=== PATIENT | female | born 1940 | race Caucasian/White ===

== ENCOUNTER 2024-12-14 09:55 | Outpatient (REF) | payer MEDICARE, SELFPAY ==
--- NOTE | ~2024-12-14 | MM_ITS ---
EXAMINATION: DXA BONE DENSITY AXIAL HISTORY: Estrogen deficiency TECHNIQUE: [employer] Dual energy absorptiometry (DEXA) of the distal radius, total left hip, and femoral neck was performed. The lumbar spine was not evaluated due to a history of prior surgery with nikhil placement. COMPARISON: There are no prior studies for comparison. FINDINGS: The bone mineral density of the total left hip is 0.858 with a T-score of -1.2, and a Z-score of 1.2. This is indicative of osteopenia. The bone mineral density of the left femoral neck is 0.721 with a T-score of -2.3, and a Z-score of 0.2. This is indicative of osteopenia. The bone mineral density of the left distal radius is 0.565 with a T-score of -3.5, and a Z-score of -0.5. This is indicative of osteoporosis. FRACTURE RISK: The FRAX index suggests a risk of major osteoporotic fracture of 24.8%, and of hip fracture 7.9%. MM/XR DEXA axial skeleton IMPRESSION: Based on bone mineral density, and according to World Health Organization (WHO) criteria, the diagnosis is consistent with osteoporosis. All bone density values are in grams per centimeter squared (g/cm2). Statistically, 68% of repeat scans fall within 1 SD (+/- 0.010 g/cm2 for AP spine L1-L4) and 1 SD (+/- 0.012 g/cm2 for femur total) FRAX is a trademark of the [employer] [place] [employer], a World Health Organization (WHO) Collaborating Center. Electronically signed by: Jeison Goldman MD 12/14/2024 12:13 PM EDT
--- OUTSIDE RECORDS SUMMARY | 2024-12-14 11:27 | XMS_ITS | Data Portability ---
Author Organization [facility] Main Office Address [address] [place] [address] Care Team Providers Care Evening Sitter Name Role Phone [facility] Ophthalmol ogist GAMALIEL COLE Primary Care Provider Assessment No assessment recorded. Plan of Treatment Reminders Order Date Submit Date Provider Last Modified By Organization Details Last Modified Time Details Appointments ESTAB DEANGELO VENTURA NT VISIT 2024 01:00P Janet Ricci MD Not available Not available Not available Lab derma topat holog y, tissu e - Shave bx--R ight Nasal Sidew all 0.5 cm from midli ne--A K, ISK, SC, BC, other 2022 023 [facility], [address] [place] [address], [id number], 08/12/2023 18:06:19 derma topat holog y, tissu e - EXC-- BC ,SC-- Upper Edge of Left Brow near later al end-- media l sutur e--pt has perma nent makeu p eyebr ow 2022 023 [facility], [address] [place] [address], [id number], 05/06/2023 10:23:22 Referral None recor ded. Procedures None recor ded. Surgeries None recor ded. Imaging None recor ded. Medication Orders doxyc yclin e hycla te 100 mg capsu le 04/18/ 2024 04/18/2 024 [email or web address] [id number], [address] [place] [address], [id number], 05/27/2024 11:00:52 diclo fenac 3 % topic al gel 2022 023 [email or web address] [id number], [address] [place] [address], [id number], 09/18/2023 09:42:20 mupir ocin 2 % topic al ointm ent 2022 023 MIKAELA [id number], [address] [place] [address], [id number], 08/15/2023 10:11:32 triam cinol one aceto nide 0.1 % topic al cream 2022 023 [email or web address] [id number], [address] [place] [address], [id number], 09/18/2023 09:42:48 Patient TargetsNo targets recorded. Patient Instructions Encounter Date Encounter Id Patient Instructions Last Modified By Organization Details Last Modified Time 04/30/2023 [id number] wound care instructions [email or web address] Not available 04/30/2023 20:11:45 Written and verb al wound care instructions given. Notify if post-op problems. Return visit 05/02/2023 for a postoperative check. Suture removal should be done May 07 or . Have a friend in [place] or your PCP in [place] remove the sutures for you. 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 {{He She*}} agrees to surgical excision today. She will be leaving town early next week and for that reason a recheck visit here is set for May 02. She will arrange suture removal to be done in [place] on the or . Discussed use of Celestone soluspan injection to minimize post-op edema and pain. {{He She*}} agrees to have this done. [email or web address] Not available 05/05/2023 15:13:01 06/23/2023 [id number] wound care instructions [email or web address] Not available 07/29/2023 09:10:17 Written and verb al wound care instructions given. Call if you have not heard by 10 days on the tissue report. Notify if post-op problems. Continue daily use of SPF-30 or higher sunscreen on all sun exposed skin applying that before going outside. Continue to wear sun protective clothing and a broad brimmed hat when outdoors in daytime. Continue other skin care as previously advised. Follow-up in 1 month. [email or web address] Not available 06/23/2023 17:36:47 Discussed possib le diagnoses for {{ nose#}} lesion and need for tissue biopsy to guide diagnosis and treatment. {{He She* They}} agrees to biopsy the {{site* sites rash }}. See procedure note. Facial seborrheic dermatitis is under good control. She will continue the present care. Reassured about lack of recurrence at previous skin cancer {{site sites*}}. Encouraged monthly self skin checks, use of SPF-30 or greater strength sunscreen daily on all sun-exposed skin, protective clothing, and minimizing mid-day sun exposure. {{He She*}} is aware of ABCDE guidelines of possible skin cancer. Reviewed risk of new and recurrent skin cancer and actinic keratoses. Right hip lesion that she noted and was concerned about is a seborrheic keratosis that does not show any unusual features. Reassured about benign nevi, angiomas, and seborrheic keratoses. Discussed expected features of these. No treatment is needed unless a lesion is painful, bleeding, itchy, tender, or changing out of character to other skin findings. Total time caring for this patient was 20 minutes. This includes time reviewing the chart before the visit, time during the visit, and time after the visit doing documentation, etc. This time excluded the procedure time. Right nasal sidewall shave biopsy showed hypertrophic actinic keratosis on the tissue report. The base of the site was cauterized when the biopsy was obtained. Ms. Moya was notified about the report by phone 07/01/2023. She reported the site was healing nicely. She has a follow-up visit fairly soon. We will recheck the biopsy site then. [email or web address] Not available 07/29/2023 09:27:04 08/15/2023 [id number] Continue daily u se of SPF-30 or higher sunscreen on all sun exposed skin applying that before going outside. Continue to wear sun protective clothing and a broad brimmed hat when outdoors in daytime. Continue other skin care as previously advised. [email or web address] Not available 08/15/2023 10:03:15 Discussed treatment options for inflamed symptomatic seborrheic {{keratosis kerato ses*}} including liquid nitrogen. Liquid N2 done to {{1* 2 3 4 5 6 7 8 9 10 11 12 13 14 15 more than 15}} {{ISK* ISKs}}. See diagram. Left ear erin bowl appears to have been scratched and shows early impetigo. Rx authorized of mupirocin ointment to apply 2-4 times daily to skin wounds. Her skin appears to be quite well moisturized at this point. There have been episodes of nummular dermatitis particularly on the legs. New Rx is authorized of TAC 0.1% cream to apply sparingly 1-2 times daily to nummular dermatitis rash on the legs and ankles. She is responding quite nicely to diclofenac 3% gel treatment for actinic keratoses. She is to continue that treatment. A new Rx is authorized for diclofenac 3% gel to apply once daily (in evening) to the face. Reassured about lack of recurrence at previous skin cancer {{site sites*}}. Encouraged monthly self skin checks, use of SPF-30 or greater strength sunscreen daily on all sun-exposed skin, protective clothing, and minimizing mid-day sun exposure. {{He She*}} is aware of ABCDE guidelines of possible skin cancer. Reviewed risk of new and recurrent skin cancer and actinic keratoses. Reassured about benign nevi, angiomas, and seborrheic keratoses. Discussed expected features of these. No treatment is needed unless a lesion is painful, bleeding, itchy, tender, or changing out of character to other skin findings. Total time caring for this patient was 45 minutes. This includes time reviewing the chart before the visit, time during the visit, and time after the visit doing documentation, etc. This time excludes any procedure time. [email or web address] Not available 12/25/2023 00:52:51 12/25/2023 [id number] Start doxycyclin e 100 mg twice daily. Cautioned that she should take this with food to minimize GI upset. She also needs to be extremely careful about consistent use of sunscreen as well as minimizing sun exposure while she is taking this medication. Continue daily use of SPF-30 or higher sunscreen on all sun exposed skin applying that before going outside. Continue to wear sun protective clothing and a broad brimmed hat when outdoors in daytime. Continue other skin care as previously advised. Follow-up in 6 months. [email or web address] Not available 05/27/2024 12:10:12 Discussed concer ns about tick bites particularly the risk of the various tick-borne diseases such as Lyme disease. Due to the number of ticks found today, I felt it was best to proceed with definitive treatment. An Rx is authorized of doxycycline 100 mg taken twice daily for 30 days. All of the ticks were removed manually. She is to notify if there is any difficulty with healing on those sites. The various signs and symptoms of the tick-borne diseases were reviewed with her and she is to notify this office if any of those symptoms should develop. Reviewed use of protective clothing and insect repellents to minimize risk of tick bites. Strongly encouraged that she do a self skin check anytime after hiking/walking in areas where ticks tend to live. Discussed treatment options for inflamed symptomatic seborrheic {{keratosis kerato ses*}} including liquid nitrogen. Liquid N2 done to {{1 2 3 4 5 6* 7 8 9 10 11 12 13 14 15 more than 15}} {{ISK ISKs*}}. See diagram. Subacute dermatitis appears to be very well-controlled. She will continue her present medications. 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 She we will continue those medications on an as-needed basis. Actinic keratoses have been nicely controlled with her present use of diclofenac 3% gel. That will be continued in the present manner and frequency. Reassured about lack of recurrence at previous skin cancer {{site sites*}}. Encouraged monthly self skin checks, use of SPF-30 or greater strength sunscreen daily on all sun-exposed skin, protective clothing, and minimizing mid-day sun exposure. {{He She*}} is aware of ABCDE guidelines of possible skin cancer. Reviewed risk of new and recurrent skin cancer and actinic keratoses. Reassured about benign nevi, angiomas, and seborrheic keratoses. Discussed expected features of these. No treatment is needed unless a lesion is painful, bleeding, itchy, tender, or changing out of character to other skin findings. Time caring for this patient was 50 minutes. This includes time reviewing the chart before the visit, time during the visit, and time after the visit doing documentation, etc. This time excludes any procedure time. [email or web address] Not available 05/27/2024 13:55:48 Reason for Referral None Reported. Results Created Date Observation Date Name Description Value Unit Range Abnormal Flag Note LastModifiedBy Organization Detail LastModifiedTime Result Notes Documentation Provider Name and Address Organization Details Recorded Time Dermatopathology, Tissue : Dermatopathology Dermatopathology, Tissue : SC in situ completely excised on the upper edge of left brow Chitra Ricci MD [address] [place], [address], [facility] 06/23/2023 16:54:00 Dermatopathology, Tissue : Dermatopathology Dermatopathology, Tissue : Hypertrophic AK on right nasal sidewall shave biopsy. Radha hoyos [place] [facility] 07/01/2023 15:55:29 Problems Name Problem SNOMED Code Status Onset Date Resolution Date Notes Provider Name and Address Organization Details Recorded Time Actinic keratosis Armando Ricci MD [address] [place], [address] , [facility] 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 7 01:17:38 History of malignant neoplasm of skin excluding melanoma [id number] Armando Ricci MD [address], [place], [address] , [facility] 3 10:05:15 Dermatophy tosis 73177573 Completed 02/09/2019 Chitra Ricci MD [address], [place], [address] , [facility] 9 18:59:18 Subacute dermatitis 88518570 Completed 04/30/2023 Chitra Ricci MD [address], [place], [address] , [facility] 4 09:41:43 Seborrheic dermatitis 21582936 Active Chitra Ricci MD [address], [place], [address] , [facility] 8 13:34:58 Inflamed seborrheic keratosis 027734004 Completed 10/23/2020 Radha Graves [facility], [facility] 2 14:34:59 Hyperpigme ntation of skin 50894358 Active Chitra Ricci MD [address], [place], [address] , [facility] 8 14:38:00 Pruritic disorder 544219846 Completed 04/30/2023 Chitra Ricci MD [address], [place], [address] , [facility] 3 08:59:02 Acne 78103964 Active Chitra Ricci MD [address] [place], [address] , [facility] 3 10:05:02 Inflamed seborrheic keratosis 554587808 Active Radha hoyos [facility] 2 14:34:59 Hayley 108476974 Completed 04/30/2023 Chitra Ricci MD [address], [place], [place], [address] [place] [address] , [facility] 3 08:58:57 Impetigo 88398508 Completed 04/30/2023 Chitra Ricci MD [address], [place], [address] [place] [address] , [facility] 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 3 09:13:51 Abscess of lip 23578495 Completed 202104/24/2023 Chitra Ricci MD [address] [place], [address] [place] [address] , [facility] 3 12:54:36 Neoplasm of uncertain behavior of skin 18569358 Completed 04/30/2023 Sophie hoyos [place] [facility] 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 3 15:08:26 Nummular eczema 19541005 Active Chitra Ricci MD [address], [place], [address] [place] [address] , [facility] 3 09:14:13 Subacute dermatitis 64214798 Active Chitra Ricci MD [address], [place], [address] , [facility] 09:41:43 Problem Notes None recorded. Procedures Surgical History Date Name Laterality Status Provider Name and Address Organization Details Recorded Time 12/25/19 24 Destruction symptomatic benign lesions <14 completed Chitra Ricci MD [address], [place], [address], [facility] 05/27/2024 11:06:28 08/15/20 23 Destruction symptomatic benign lesions <14 completed Chitra Ricci MD [address], [place], [address], [facility] 08/15/2023 10:02:06 06/23/20 23 Biopsy-shave 1st site completed Chitra Ricci MD [address], [place], [address], [facility] 06/23/2023 17:31:40 04/30/20 23 Celestone soluspan 3 mg completed Chitra Ricci MD [address], [place], [address], [facility] 04/30/2023 20:05:07 04/30/20 23 Exc mal face/ear/eyelid/n ose/lips 1.1-2.0cm completed Chitra Ricci MD [address], [place], [address], [facility] 05/05/2023 14:36:46 04/30/20 23 Complex repair eyelid/nose/ear/l ip 2.6-7.5 cm completed Chitra Ricci MD [address], [place], [address], [facility] 05/05/2023 15:15:46 04/30/20 23 Skin Cancer Surgery completed Chitra Ricci MD [address], [place], [address], [facility] 07/28/2023 23:41:08 04/24/20 23 Wart Topical Procedure completed Chitra Ricci MD [address], [place], [address], [facility] 04/29/2023 18:44:34 04/24/20 23 Local destruction premalignant lesion 1 lesion completed Chitra Ricci MD [address], [place], [address], [facility] 04/24/2023 15:37:23 04/24/20 23 Local destruction premalignant lesion 2-14 completed Chitra Ricci MD [address], [place], [address], [facility] 04/30/2023 09:03:16 01/31/20 23 Destruction symptomatic benign lesions <14 completed Sophie Plata [place] [facility] 04/11/2023 10:38:18 01/31/20 23 Local destruction premalignant lesion 1 lesion completed Chitra Ricci MD [address], [place], [address], [facility] 01/30/2023 14:07:19 01/31/20 23 Local destruction premalignant lesion 2-14 completed Chitra Ricci MD [address], [place], [address], [facility] 04/24/2023 12:56:11 09/12/19 23 Biopsy-shave 1st site completed Radha Gilliam [facility] 09/12/2022 15:22:21 09/12/19 23 Destruction symptomatic benign lesions <14 completed Chitra Ricci MD [address], [place], [address], [facility] 09/12/2022 15:07:27 04/01/20 22 I+D 1/not complicated completed Chitra Ricci MD [address], [place], [address], [facility] 08/19/2022 00:09:49 02/07/20 22 Destruction symptomatic benign lesions <14 completed Chitra Ricci MD [address] [place], [address], [facility] 02/07/2022 00:42:25 02/07/20 22 Local destruction premalignant lesion 1 lesion completed Chitra Ricci MD [address], [place], [address], [facility] 02/07/2022 00:42:30 12/18/19 22 Biopsy-shave 1st site completed Chitra Ricci MD [address], [place], [address], [facility] 01/30/2022 11:10:13 10/18/19 22 Acne surgery completed Chitra Ricci MD [address], [place], [address], [facility] 12/17/2021 14:24:32 10/18/19 22 Destruction symptomatic benign lesions <14 completed Chitra Ricci MD [address], [place], [address], [facility] 12/17/2021 14:24:28 10/08/19 22 Joint Replacement completed Radha Gilliam [place] [facility] 12/17/2021 13:14:52 12/20/19 21 Chemical cauterization of granulation tissue completed Chitra Ricci MD [address], [place], [address], [facility] 12/22/2020 17:07:44 12/20/19 21 Removal of Foreign Body completed Chitra Ricci MD [address], [place], [address], [facility] 10/18/2021 09:56:34 01/05/20 20 Kenalog 10 mg completed Chitra Ricci MD [address], [place], [address], [facility] 01/05/2020 09:39:26 01/05/20 20 Celestone soluspan 3 mg completed Chitra Ricci MD [address], [place], [address], [facility] 01/05/2020 10:04:48 02/11/20 19 Celestone soluspan 3 mg completed Chitra Ricci MD [address], [place], [address], [facility] 02/10/2019 15:56:59 02/11/20 19 Destruction symptomatic benign lesions <14 completed Chitra Ricci MD [address], [place], [address], [place] [facility] 02/10/2019 15:55:01 09/18/19 19 Destruction symptomatic benign lesions <14 completed Chitra Ricci MD [address], [place], [address], [facility] 02/09/2019 18:55:14 09/18/19 19 Local destruction premalignant lesion 1 lesion completed Chitra Ricci MD [address], [place], [address], [facility] 09/18/2018 10:54:52 09/18/19 19 Local destruction premalignant lesion 2-14 completed Chitra Ricci MD [address], [place], [address], [facility] 02/09/2019 18:38:40 12/03/19 18 Destruction symptomatic benign lesions 15 or more completed Chitra Ricci MD [address], [place], [address], [facility] 12/02/2017 14:15:09 11/25/19 18 Biopsy, each additional completed Chitra Ricci MD [address], [place], [address], [facility] 12/02/2017 12:55:35 11/25/19 18 Biopsy Punch completed Chitra Ricci MD [address], [place], [address], [facility] 12/02/2017 12:56:42 08/06/20 17 Removal of Foreign Body completed Chitra Ricci MD [address], [place], [address], [facility] 08/18/2017 13:16:57 08/06/20 17 Local destruction premalignant lesion 1 lesion completed Chitra Ricci MD [address], [place], [address], [facility] 08/18/2017 13:10:24 08/06/20 17 Local destruction premalignant lesion 2-14 completed Chitra Ricci MD [address], [place], [address], [facility] 08/18/2017 13:10:20 05/29/20 17 Celestone soluspan 3 mg completed Chitra Ricci MD [address], [place], [address], [facility] 05/29/2017 17:22:17 04/23/20 17 Removal of Foreign Body completed Chitra Ricci MD [address] [place], [address], [facility] 07/15/2017 23:53:59 09/30/19 17 Skin Cancer Surgery completed Chitra Ricci MD [address], [address], [facility] 05/29/2017 16:48:38 09/30/19 13 Other completed Chitra Ricci MD [address], [place], [address], [facility] 08/18/2017 13:35:22 09/08/18 97 Other completed Chitra Ricci MD [address], [place], [address], [facility] 04/28/2017 12:48:54 09/08/18 97 Skin Cancer Surgery completed Chitra Ricci MD [address] [place], [address], [facility] - [facility] 04/28/2017 12:50:11 Imaging Results None recorded. Procedure Notes None recorded. Medical Equipment None Reported. Allergies No known drug allergies Medications Name Sig Start Date Stop Date Status Note LastModified by Organization Details LastModified Time amoxicill in 500 mg capsule Take 4 capsules 1 hour before dental appointm ent active Not Available Not Available No t Available furosemid e 40 mg tablet Take 1 tablet once daily 09/12 completed Not Available Not Available Not Available atorvasta tin 40 mg tablet Take 1 tablet every evening active Not Available Not Available No t Available metformin 500 mg tablet Take 1 tablet once daily with breakfas t 12/24 completed Not Available Not Available Not Available diclofena c 3 % topical gel APPLY TO AFFECTED AREA(S) OF FACE EVERY EVENING active Not Available Not Available No t Available prednison e 10 mg tablet 09/18 completed Not Available Not Available Not Available doxycycli ne hyclate 100 mg capsule Take 1 capsule twice a day with food. active Not Available Not Available No t Available ammonium lactate 12 % lotion Apply 1-2 times daily to dry skin on the arms, trunk, and legs active Not Available Not Available No t Available pravastat in 40 mg tablet Take 1 tablet once daily at bedtime 01/30 completed Not Available Not Available Not Available metoprolo l succinate ER 50 mg tablet,ex tended release 24 hr 1 tab po once daily 12/19 completed Not Available Not Available Not Available valacyclo vir 1 gram tablet Take 1 tablet twice daily 09/12 completed Not Available Not Available Not Available tolterodi ne ER 4 mg capsule,e xtended release 24 hr Take 1 capsule once daily 12/24 completed Not Available Not Available Not Available hydrocodo ne 5 mg-acetam inophen 325 mg tablet 02/10 completed Not Available Not Available Not Available ondansetr on HCl 4 mg tablet TAKE 1 TABLET BY MOUTH EVERY DAY 09/12 completed Not Available Not Available Not Available prednison e 20 mg tablet TAKE 1 TABLET BY MOUTH ONCE DAILY WITH FOOD OR MILK FOR 3 DAYS 02/10 /2022 completed Not Available Not Available Not Available fluoroura cil 5 % topical cream Apply twice daily to face for 2 weeks and then stop. 10/23 completed Not Available Not Available Not Available sertralin e 100 mg tablet Take 1 tablet every day active Not Available Not Available No t Available prednison e 5 mg tablet 07/15 completed Not Available Not Available Not Available amlodipin e 5 mg tablet Take 1 tablet once daily 04/24 completed temporar urbano not being take Not Available Not Available Not Available tretinoin 0.05 % topical cream Apply by topical route for 30 days. 12/24 completed (denied by ins) Not Available Not Available Not Available ciproflox acin 500 mg tablet 09/12 completed Not Available Not Available Not Available omeprazol e 40 mg capsule,d elayed release Take 1 capsule twice daily active Not Available Not Available No t Available tramadol 50 mg tablet Take 1 tablet every 6 hours prn acute pain 09/12 completed Not Available Not Available Not Available triamcino lone acetonide 0.1 % topical cream Apply sparingl y 1-2 times daily to rash on legs and ankles. active Not Available Not Available No t Available amoxicill in 500 mg tablet 08/15 completed Not Available Not Available Not Available tolterodi ne 2 mg tablet Take 1 tablet once daily prn urinary discomfo rt 04/24 completed Not Available Not Available Not Available hydrocort isone 2.5 % lotion Apply thinly once daily to rash on face, neck, arms, and shoulder s. Do not apply to normal skin. 2024 active Not Available Not Available Not Avai lable imiquimod 5 % topical cream packet Apply three non-cons ecutive nights per week to upper lip. 01/04 completed Never picked up; worried about reaction . Not Available Not Available Not Available doxycycli ne monohydra te 100 mg capsule 12/19 completed Not Available Not Available Not Available hydrocodo ne 7.5 mg-acetam inophen 325 mg tablet 12/17 completed Temporar y - shoulder surgery Not Available Not Available Not Available cephalexi n 500 mg capsule TAKE 1 CAPSULE BY MOUTH FOUR TIMES A DAY FOR 7 DAYS 10/18 completed Not Available Not Available Not Available neomycin- polymyxin -dexameth 3.5 mg/mL-10, 000 unit/mL-0 .1% eye drops 10/09 completed Not Available Not Available Not Available ranitidin e 150 mg tablet 07/13 completed Not Available Not Available Not Available nitroglyc aristeo 0.4 mg sublingua l tablet 12/19 completed Not Available Not Available Not Available oxybutyni n chloride ER 5 mg tablet,ex tended release 24 hr Take 1 tablet every day active Not Available Not Available No t Available diltiazem CD 120 mg capsule,e xtended release 24 hr 12/19 completed Not Available Not Available Not Available monteluka st 10 mg tablet Take 1 tablet once daily 04/24 completed For allergie s Not Available Not Available Not Available ammonium lactate 12 % topical cream Apply 1-2 times daily to dry skin on arms, trunk, and legs 12/24 completed Not Available Not Available Not Available mupirocin 2 % topical ointment Apply 2-4 times daily to skin wounds active Not Available Not Available No t Available zolpidem 5 mg tablet Take 1 capsule at bedtime as needed for insomnia active Not Available Not Available No t Available metoprolo l succinate ER 25 mg tablet,ex tended release 24 hr 10/30 completed Not Available Not Available Not Available Transderm -Scop 1 mg over 3 days transderm al patch 02/10 completed prn Not Available Not Available Not Available ibuprofen 600 mg tablet 10/30 completed prn Not Available Not Available Not Available levofloxa los 500 mg tablet 07/15 completed Not Available Not Available Not Available ketoconaz ole 2 % topical cream APPLY TO AFFECTED AREAS IN THE EARS TWICE A DAY UNTIL RASH IS GONE. 10/30 completed Not Available Not Available Not Available oxybutyni n chloride 5 mg tablet Take 1/2 tablet once daily as needed active Not Available Not Available No t Available indometha los ER 75 mg capsule,e xtended release active prn Not Available Not Available Not Available sertralin e 50 mg tablet TAKE 1 TABLET BY MOUTH EVERY DAY 09/12 completed Not Available Not Available Not Available naproxen 500 mg tablet 11/10 completed Not Available Not Available Not Available metoclopr amide 10 mg tablet Take 1 tablet every 8 hours as needed for nausea active Not Available Not Available No t Available amoxicill in 500 mg-potass ium clavulana te 125 mg tablet 07/25 completed Not Available Not Available Not Available Restasis 0.05 % eye drops in a dropperet te 12/19 completed Not Available Not Available Not Available rosuvasta tin 10 mg tablet Take 1 tablet once daily 04/24 completed Not Available Not Available Not Available nitrofura ntoin monohydra te/macroc rystals 100 mg capsule 09/12 completed Not Available Not Available Not Available Vesicare 10 mg tablet 04/07 completed Not Available Not Available Not Available pregabali n 200 mg capsule TAKE 1 CAPSULE BY MOUTH TWICE A DAY active Not Available Not Available No t Available cholecalc iferol (vitamin D3) 1,250 mcg (50,000 unit) capsule TAKE 1 CAPSULE BY MOUTH EVERY 7 DAYS 10/30 completed Not Available Not Available Not Available Voltaren 1 % topical gel active prn (Has 2.5% strength that is OTC in [place].) Not Available Not Available Not Available cholecalc iferol (vitamin D3) 50 mcg (2,000 unit) tablet Take 2 tablets once daily 10/18 completed Not Available Not Available Not Available Prolia 60 mg/mL subcutane ous syringe active Once a year Not Available Not Available Not Available EpiPen 2-Bashir 0.3 mg/0.3 mL injection , auto-inje ctor Use as instruct ed on packagin g. 09/12 completed Not Available Not Available Not Available potassium chloride ER 20 mEq tablet,ex tended release Take 1 tablet once daily 10/18 completed Not Available Not Available Not Available Shingrix (PF) 50 mcg/0.5 mL intramusc ular suspensio n, kit 07/10 completed Not Available Not Available Not Available Lotemax SM 0.38 % eye gel drops INSTILL 1 DROP IN LEFT EYE 4 TIMES DAILY FOR 1 WEEK, THEN FOLLOW TAPER SCHEDULE 04/07 completed Not Available Not Available Not Available Vitals Date Recorded Body height Body mass index (BMI) Body weight Systolic blood pressure Diastolic blood pressure Provider Name and Address Organization Details Last Updated DateTime 04/30/2023 152.4 cm 27.2 kg/m2 51274.14 g 121 mm[Hg] 74 mm[Hg] Sophie [facility] 3 10:33:00 Date Recorded Body height Body mass index (BMI) Body weight Provider Name and Address Organization Details Last Updated DateTime 05/02/2023 152.4 cm 27.2 kg/m2 59715.14 g Radha Ricci M[facility] 05/02/2023 10:07:59 Date Recorded Body height Body mass index (BMI) Body weight Systolic blood pressure Diastolic blood pressure Provider Name and Address Organization Details Last Updated DateTime 06/23/2023 152.4 cm 27.3 kg/m2 81841.93 g 118 mm[Hg] 69 mm[Hg] Radha [facility] 3 16:41:15 Date Recorded Body height Body mass index (BMI) Body weight Systolic blood pressure Diastolic blood pressure Provider Name and Address Organization Details Last Updated DateTime 08/15/2023 152.4 cm 26.8 kg/m2 50636.15 g 124 mm[Hg] 89 mm[Hg] Sophie [facility] 3 09:17:56 Date Recorded Body height Body mass index (BMI) Body weight Systolic blood pressure Diastolic blood pressure Provider Name and Address Organization Details Last Updated DateTime 12/25/2023 152.4 cm 27.3 kg/m2 01310.93 g 159 mm[Hg] 91 mm[Hg] Sophie [facility] 4 14:25:16 Date Recorded Body height Body mass index (BMI) Body weight Systolic blood pressure Diastolic blood pressure Provider Name and Address Organization Details Last Updated DateTime 07/08/2024 152.4 cm 25 kg/m2 12899.82 g 126 mm[Hg] 73 mm[Hg] Sophie Ricci [facility] 4 13:39:46 Social History Question Answer Notes LastModified by Organizat ion Details LastModified Time Tobacco Smoking Status Never Smoker Not Available [employer] 07/11/2020 03:34:40 What Is Your Level Of Alcohol Consumption? Moderate 2 Drinks A Day [id number] Information not available 07/11/2020 Are You Blind Or Do You Have Difficulty Seeing? No Information not available 08/18/2022 Are You Currently Employed? No Retired Information not available 12/17/2021 Are You Deaf Or Do You Have Serious Difficulty Hearing? No [id number] Information not available 07/11/2020 FAMILY HX MELANOMA No Information not available 04/23/2017 FAMILY HISTORY NON-MELANOMA SKIN CANCER No Information not available 04/23/2017 What Was The Date Of Your Most Recent Tobacco Screening? 12/25/2023 She Continues To Not Smoke. Information not available 12/25/2023 How Many Children Do You Have? 1 Information not available 08/28/2022 What Is Your Relationship Status? Single Information not available 08/28/2022 Are You Passively Exposed To Smoke? No Information not available 08/28/2022 What Types Of Sporting Activities Do You Participate In? Making Jewelry, Sewing, Gardening Information not available 08/28/2022 Do You Use Any Illicit Or Recreational Drugs? No Information not available 08/28/2022 Do You Use Sunscreen Routinely? Yes [place] To [place]. In [place] Since 1946. Spends [place] She [place]ises [place]. [id number] Information not available 07/11/2020 Has Tobacco Cessation Counseling Been Provided? No Not Indicated Information not available 08/18/2022 Do You Or Have You Ever Used Any Other Forms Of Tobacco Or Nicotine? No Information not available 12/17/2021 Sex: Unknown Functional Status None recorded. Mental Status None recorded. Family History Relationship Description Onset Age of this Age Resolved Age Notes LastModified by Organization Details LastModified Time Father Fall 80 Fell and hit his head Not available 04/23/2017 11:02:53 Father Malignant tumor of larynx [email or web address] Not available 2016 12:51:14 Mother Malignant lymphoma 83 Not available 04/23 11:01:50 Mother Allergic rhinitis caused by pollen [email or web address] Not available 2016 12:51:50 Son Victim of trauma with multiple injuries [age] murder victim [email or web address] Not available 12/19/2020 09:03:19 Daughter Well female adult Bob; Age 58 as of Not available 07/08/2024 13:40:15 Notes:Ancestry is [place] an d Kh[place]. She was an only child. She had two children. Son 05/15/17 at age 52. No family history of skin cancer. Medical History Condition Response Heart Problems N Family Hx of Melanoma N Other Y Hepatitis, other than type A N Bleeding disorder N Rheumatologic Disease N Allergies, respiratory and food Y COPD N Lung Disease N Allergies, medications N Cerebral Vascular Accident or TIAs N Tobacco, chewing N Tobacco, cigars N Non-melanoma skin cancer Y Diabetes N Hyperlipidemia N Cancer N Asthma N Thyroid disease N Smoking, tobacco et. al. N Reflux/GERD N Melanoma skin cancer N Liver Disease N Joint Replacement Y Blood thinner/Anti-coagulated N Hypertension N Kidney Disease N Gynecological HistoryNo gynecological history recorded. Obstetrics History GPAL:G 0 P 0 0 0 0 Immunizations Vaccine Type Date Status Note Provider Nam e and Address Organization Details Recorded Time COVID-19, mRNA, LNP-S, PF, 100 mcg/0.5mL dose or 50 mcg/0.25mL dose 10/23/2020 completed Chitra Ricci MD [address] [place], [address], [facility]ra [facility] 10/18/2021 14:16:13 COVID-19, mRNA, LNP-S, PF, 100 mcg/0.5mL dose or 50 mcg/0.25mL dose 11/20/2020 completed Chitra Ricci MD [address] [place], [address], [facility] Chitra [facility] 10/18/2021 14:16:30 COVID-19, mRNA, LNP-S, PF, 100 mcg/0.5mL dose or 50 mcg/0.25mL dose 05/13/2021 completed Chitra Ricci MD [address] [place], [address], [facility] Chitra [facility] 10/18/2021 14:16:42 Influenza, high-dose, trivalent, PF 06/08/2021 completed Chitra Ricci MD [address] [place], [address], [facility] Chitra [facility] 10/18/2021 14:17:08 pneumococcal, unspecified formulation 09/08/2014 completed Chitra Ricci MD [address] [place], [address], [facility] Chitra [facility] 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 Superficia l foreign body of hand without major open wound AND without infection 10796760 S60.551A S60.552A [id number] Chitra Ricci MD Main Office [address] [place] [address] 05/29/2017 16:05:10 05/29/2017 18:44:42 Actinic keratosis L57.0 Asteatotic eczema 20100314 008 L85.3 History of malignant neoplasm of skin excluding melanoma 489210802 Z85.828 Allergic c ontact dermatitis 175884297 L23.9 [facility] 01106231 L57.3 [id number] Chitra Ricci MD Main Office [address] [place] [address] 08/06/2017 08:59:59 08/06/2017 10:31:30 Actinic keratosis 596497950 L57.0 Asteatotic eczema 291260 008 L85.3 History of malignant neoplasm of skin excluding melanoma 462050315 Z85.828 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 Foreign body in skin 934 34350 S60.352A Multiple b enign melanocytic nevi 333223423 D22.5 [id number] Chitra Ricci MD Main Office [address] [place] [address] 08/18/2017 13:00:18 08/18/2017 14:24:39 Actinic keratosis 228862090 L57.0 History of malignant neoplasm of skin excluding melanoma 870581030 Z85.828 Allergic c ontact dermatitis 670642884 L23.89 Neoplasm o f uncertain behavior of skin 93074107 D48.5 Poikiloder ma of [place] 64773672 L57.3 [id number] Chitra Ricci MD Main Office [address] [place] [address] 10/13/2017 09:39:44 10/13/2017 11:40:35 Asteatotic eczema 275742729 L85.3 Actinic keratosis 007 L57.0 History of malignant neoplasm of skin excluding melanoma 176550756 Z85.828 Allergic c ontact dermatitis 804847667 L23.89 Poikiloder ma of [place] 68285892 L57.3 [id number] Chitra Ricci MD Main Office [address] [place] [address] 11/24/2017 09:01:39 11/24/2017 11:01:49 History of malignant neoplasm of skin excluding melanoma 009741721 Z85.828 Allergic c ontact dermatitis 485043555 L23.89 Asteatotic eczema 945290 008 L85.3 Actinic keratosis 475928 007 L57.0 Subacute dermatitis 5310 7009 L20.89 Dermatophytosis 65046241 B35.8 [id number] Chitra Ricci MD Main Office [address] [place] [address] 12/02/2017 12:56:19 12/02/2017 14:50:12 History of malignant neoplasm of skin excluding melanoma 734147387 Z85.828 Allergic c ontact dermatitis 328822480 L23.89 Seborrheic dermatitis 50 743768 L21.8 Inflamed s eborrheic keratosis 735253321 L82.0 Hyperpigme ntation of skin 29926996 L81.4 [id number] Chitra Ricci MD Main Office [address] [place] [address] 09/18/2018 10:24:26 09/18/2018 11:25:41 Actinic keratosis 105389677 L57.0 Seborrheic dermatitis 50 554451 L21.8 Asteatotic eczema 869913 008 L85.3 History of malignant neoplasm of skin excluding melanoma 252175429 Z85.828 Inflamed s eborrheic keratosis 386801872 L82.0 [id number] Chitra Ricci MD Main Office [address] [place] [address] 02/10/2019 15:05:43 02/10/2019 16:13:30 Actinic keratosis 671865993 L57.0 Asteatotic eczema 573027 008 L85.3 Seborrheic dermatitis 50 724174 L21.8 History of malignant neoplasm of skin excluding melanoma 442441459 Z85.828 Inflamed s eborrheic keratosis 576257505 L82.0 Allergic c ontact dermatitis 625900984 L23.89 [id number] Chitra Ricci MD Main Office [address] [place] [address] 07/13/2019 09:06:08 07/13/2019 09:59:55 Asteatotic eczema 583802829 L85.3 Hyperpigme ntation of skin 58952205 L81.4 History of malignant neoplasm of skin excluding melanoma 582496349 Z85.828 Subacute dermatitis 5310 7009 L20.89 Inflamed s eborrheic keratosis 619973121 L82.0 Seborrheic dermatitis 50 580830 L21.8 Actinic keratosis 044132 007 L57.0 [id number] Chitra Ricci MD Main Office [address] [place] [address] 11/18/2019 13:20:48 11/18/2019 14:57:52 History of malignant neoplasm of skin excluding melanoma 009488733 Z85.828 Subacute dermatitis 5310 7009 L20.89 Actinic keratosis 167944 007 L57.0 Asteatotic eczema 168162 008 L85.3 Seborrheic dermatitis 50 446782 L21.8 [id number] Chitra Ricci MD Main Office [address] [place] [address] 01/05/2020 08:35:47 01/05/2020 10:06:16 Subacute dermatitis 73611043 L20.89 Actinic keratosis 500506 007 L57.0 History of malignant neoplasm of skin excluding melanoma 659418902 Z85.828 Asteatotic eczema 147579 008 L85.3 Pruritic disorder 183086 002 L29.8 Atopic barbara matitis of eyelid 534399077 L20.89 [id number] Chitra Ricci MD Main Office [address] [place] [address] 10/30/2020 15:42:54 10/30/2020 16:56:28 Asteatotic eczema 907922394 L85.3 Actinic keratosis 322158 007 L57.0 History of malignant neoplasm of skin excluding melanoma 655550356 Z85.828 At low risk for fall 439 734700 Z91.81 Subacute dermatitis 5310 7009 L20.89 [id number] Chitra Ricci MD Main Office [address] [place] [address] 12/19/2020 10:06:38 12/19/2020 11:35:03 History of malignant neoplasm of skin excluding melanoma 306622752 Z85.828 Actinic keratosis 645376 007 L57.0 Foreign body 729801011 Z 87.821 Intertrigo 10283456 L30. 4 Open wound of lower leg 531710937 S81.802A Abnormal g ranulation tissue 41757082 L92.8 Asteatotic eczema 796188 008 L85.3 [id number] Chitra Ricci MD Main Office [address] [place] [address] 10/18/2021 13:38:57 10/18/2021 15:34:17 Seborrheic dermatitis 42445322 L21.8 Asteatotic eczema 487514 008 L85.3 Actinic keratosis 007 L57.0 History of malignant neoplasm of skin excluding melanoma 498286352 Z85.828 Subacute dermatitis 5310 7009 L20.89 Acne 16394806 L70.8 Inflamed s eborrheic keratosis 845923113 L82.0 [id number] Chitra Ricci MD Main Office [address] [place] [address] 12/17/2021 13:03:35 12/17/2021 14:09:22 History of malignant neoplasm of skin excluding melanoma 409977463 Z85.828 Actinic keratosis 653314 007 L57.0 Milia 710916812 L72.0 Neoplasm o f uncertain behavior of skin 46896300 D48.5 [id number] Chitra Ricci MD Main Office [address] [place] [address] 02/06/2022 10:13:33 02/06/2022 11:36:53 Seborrheic dermatitis 69305800 L21.8 Asteatotic eczema 182635 008 L85.3 History of malignant neoplasm of skin excluding melanoma 211339929 Z85.828 Actinic keratosis 685636 007 L57.0 Subacute dermatitis 5310 7009 L20.89 Herpes simplex 44924672 B00.89 Impetigo 49256024 L01.09 Inflamed s eborrheic keratosis 184734784 L82.0 [id number] Chitra Ricci MD Main Office [address] [place] [address] 04/01/2022 15:02:44 04/01/2022 16:10:27 Abscess of lip 66503586 K13.0 Seborrheic dermatitis 50 525683 L21.8 Acne 83191507 L70.8 History of malignant neoplasm of skin excluding melanoma 829009196 Z85.828 Herpes simplex 73038918 B00.89 [id number] Chitra Ricci MD Main Office [address] [place] [address] 09/12/2022 14:25:13 09/12/2022 15:13:17 Actinic keratosis 611050749 L57.0 Asteatotic eczema 986377 008 L85.3 Seborrheic dermatitis 50 424683 L21.8 Subacute dermatitis 5310 7009 L20.89 History of malignant neoplasm of skin excluding melanoma 883727580 Z85.828 Verruca vulgaris 0713339 3 B07.8 Neoplasm o f uncertain behavior of skin 54303750 D48.5 [id number] Chitra Ricci MD Main Office [address] [place] [address] 01/30/2023 13:08:47 01/30/2023 14:28:51 Inflamed seborrheic keratosis 708945456 L82.0 Hyperpigme ntation of skin 01805053 L81.4 Seborrheic dermatitis 50 199420 L21.8 Asteatotic eczema 165571 008 L85.3 Actinic keratosis 007 L57.0 History of malignant neoplasm of skin excluding melanoma 381122872 Z85.828 Subacute dermatitis 5310 7009 L20.89 Nummular eczema 95966180 L30.0 [id number] Cihtra Ricci MD Main Office [address] [place] [address] 04/24/2023 14:33:53 04/24/2023 15:51:45 Actinic keratosis 295189340 L57.0 Asteatotic eczema 203001 008 L85.3 History of malignant neoplasm of skin excluding melanoma 680224392 Z85.828 Nummular eczema 35308189 L30.0 Seborrheic dermatitis 50 708503 L21.8 Verruca vulgaris 6773002 3 B07.8 Basal cell carcinoma of upper eyelid 371728405 C44.1191 [id number] Chitra Ricci MD Main Office [address] [place] [address] 04/30/2023 10:25:29 04/30/2023 12:35:24 Basal cell carcinoma of upper eyelid 763955357 C44.1191 Localized edema 22730123 4 R60.0 History of malignant neoplasm of skin excluding melanoma 121549412 Z85.828 [id number] Chitra Ricci MD Main Office [address] [place] [address] 06/23/2023 16:31:54 06/24/2023 08:25:19 History of malignant neoplasm of skin excluding melanoma 807206464 Z85.828 Inflamed s eborrheic keratosis 739416079 L82.0 Seborrheic dermatitis 50 982769 L21.8 Actinic keratosis 307388 007 L57.0 Asteatotic eczema 727979 008 L85.3 Verruca vulgaris 5404953 3 B07.8 Neoplasm o f uncertain behavior of skin 45248939 D48.5 [id number] Chitra Ricci MD Main Office [address] [place] [address] 08/15/2023 09:07:24 08/15/2023 10:10:34 History of malignant neoplasm of skin excluding melanoma 439695077 Z85.828 Inflamed s eborrheic keratosis 194694864 L82.0 Nummular eczema 30059206 L30.0 Actinic keratosis 296641 007 L57.0 Asteatotic eczema 545854 008 L85.3 Seborrheic dermatitis 50 137539 L21.8 Subacute dermatitis 5310 7009 L20.89 Multiple b enign melanocytic nevi 882012083 D22.5 Impetigo 05240506 L01.09 [id number] Chitra Ricci MD Main Office [address] [place] [address] 12/25/2023 13:58:09 12/25/2023 15:17:48 Actinic keratosis 160434122 L57.0 Inflamed s eborrheic keratosis 729160981 L82.0 Nummular eczema 39699343 L30.0 Asteatotic eczema 433418 008 L85.3 History of malignant neoplasm of skin excluding melanoma 709556675 Z85.828 Tick bite 69027594 W57.X XXA Foot callus 247691606 L8 4 Health Concerns Section Related Observation LastModified by Organization Detai ls LastModified Time None Recorded Concern Status LastModified by Organization Details LastModified Time None Recorded Advance Directives Directive None Recorded Payers Encounter Date Sequence Insurance Name Policy Number Policy Jordan Covered Member ID Jordan Member ID Guarantor Name 04/30/2023 1 [employer] (MEDICARE REPLACEMENT PPO) [id number] Johanna Moya [id number] Joea Erman 06/23/2023 1 [employer] (MEDICARE REPLACEMENT PPO) [id number] Johanna Erman [id number] Aila Erman 08/15/2023 1 [employer] (MEDICARE REPLACEMENT PPO) [id number] Johanna Erman [id number] Aila Erman 12/25/2023 1 [employer] (MEDICARE REPLACEMENT PPO) [id number] A Johanna Erman [id number] Joea Ermlinda Notes Date Note Type Note Provider Name and Address Organization Details Recorded Time 04/30/2023 text/html Skin Cancer/Skin LesionReported byPatient and Dr Ricci.Location:Lateral end of left brow. Onset/Timing:unknown Duration:Lesion noted since 01/2023. Identified:patient identified Quality:On 04/24/2023 exam site showed an erythematous papule most consistent with a basal cell carcinoma. An actinic keratosis was treated in this area on 01/30/2023. Chitra Ricci MD [address] [place] [address], [address], [facility] - [facility]itra [facility] 05/05/2023 15:16:22 06/23/2023 text/html GrowthReported bypatient.Location:Rou gh lesion present over 6 months on right nasal sidewall. Brown lesion on right hip. Quality:Denies pain or bleeding. Onset/Timing:gradual onset Aggravating Factors:nothing makes it worse Associated Symptoms:none Treatment History:Lesion on nose has been treated with N2 and topical 5-FU in past.Growth F/UReported byPatient and Dr Ricci.Treatment History:Four actinic keratoses on the right forehead and right brow treated 04/24/2023 with liquid nitrogen with good response. 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 Response to Treatment:well toleratedWart F/UReported bypatient.Location:War ts present on 04/24/2023 exam on right hand have resolved. Response to Treatment:Warts pared with #15 blade and treated with Cantharone topical solution.EczemaReporte d bypatient.Location:John orrheic dermatitis of head and neck. 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 Severity:improving Alleviating Factors:Hydrocortisone 2.5% lotion applied as needed to rash areas on head, neck, and below breasts. Ammonium lactate cream applied daily to arms, trunk, and legs. TAC 0.1% cream not currently in use.History of Skin CancerReported bypatient.Notes:Denies problems at skin cancer treatment sites. Chitra Ricci MD [address], [place], [address], [facility] - [facility]itra [facility] 07/29/2023 09:50:21 08/15/2023 text/html GrowthReported bypatient.Location:Itc hy lesion present for years on the high left upper back near the shoulder blade Quality:not painful; not bleeding Onset/Timing:gradual onset Context:not scratching; not picking Aggravating Factors:Rubs against the bra strap Associated Symptoms:none Treatment History:no history of treatmentGrowth F/UReported byPatient and Dr Ricci.Treatment History:Diclofenac 3% gel on hand. Not currently in use. Shave biopsy done 06/23/2023 on right nasal sidewall. Tissue report showed a hypertrophic actinic keratosis. Actinic keratoses on the right forehead and right brow treated 04/24/2023 with liquid nitrogen with good response. Response to Treatment:well toleratedHistory of Skin CancerReported bypatient.Notes:Denies problems at skin cancer treatment sites.EczemaReported bypatient.Location:John orrheic dermatitis of head and neck. 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 Severity:improving Alleviating Factors:Hydrocortisone 2.5% lotion applied as needed to head, neck, and under breasts. Ammonium lactate cream applied daily to arms, trunk, and legs. TAC cream applied as needed to legs and ankles. Chitra Ricci MD [address], [place], [id number], [facility] - Chitra Ricci M.D[facility] P[facility] 12/25/2023 00:53:04 12/25/2023 text/html Growth F/UReport ed byPatient and Dr Ricci.Treatment History:Diclofenac 3% gel on hand. Uses about 2-3 times a week to the face. Actinic keratoses on the right forehead and right brow treated 04/24/2023 with liquid nitrogen with good response. Response to Treatment:well toleratedHistory of Skin CancerReported bypatient.Notes:Denies problems at skin cancer treatment sites.EczemaReported bypatient.Location:John orrheic dermatitis of head and neck. 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 Severity:improving Alleviating Factors:Hydrocortisone 2.5% lotion applied as needed to head, neck, and under breasts. Ammonium lactate cream applied daily to arms, trunk, and legs. TAC cream applied as needed to legs and ankles.OtherReported bypatient.Notes:Was out walking in a wooded area on 12/23/2023 and encountered chiggers and ticks. She definitely has multiple sites of tick and/or chigger bites Chitra Ricci MD [address], [place], [id number], [facility] Falguni Ricci M.D[facility] P.A[facility] 05/27/2024 13:56:22 OBGyn Episode No OBEpisode recorded.
--- OUTSIDE RECORDS SUMMARY | 2024-12-14 11:27 | XMS_ITS | Data Portability ---
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 Plan of Treatment Reminders Order Date Submit Date Provider Last Modified By Organization Details Last Modified Time Details Appointments None recorded. Lab rapid influenza virus A + B and SARS CoV + SARS CoV 2 Ag panel, IA, upper respirator y specimen 2020 021 6 In-Office Order, Internal Use Only DO Not Attach Compendium DO Not Attach Compendium, Do Not Delete/merge, [id number] 16:22:09 vitamin B12, serum 2019 [facility] [address] [place], [address], 0 16:51:43 CBC 2019 020 [facility]), [address] [place], [address], 0 16:49:25 TSH + free T4, serum 2019 020 [facility]), [facility] [place], [address], 0 16:51:10 heterophil e Ab, qualitativ e latex agglutinat ion, serum 2019 020 [facility]), [address] [place], [address], 0 16:52:22 rapid SARS CoV 2 Ag, QL IA, respirator y specimen 2019 020 [email or web address] In-Office Order, Internal Use Only DO Not Attach Compendium DO Not Attach Compendium, Do Not Delete/merge, [id number] 0 17:25:50 rapid influenza virus A + B and SARS CoV + SARS CoV 2 Ag panel, IA, upper respirator y specimen 2019 020 [email or web address] In-Office Order, Internal Use Only DO Not Attach Compendium DO Not Attach Compendium, Do Not Delete/merge, [id number] 0 17:26:07 rapid SARS CoV 2 Ag, QL IA, respirator y specimen 2019 020 [email or web address] In-Office Order, Internal Use Only DO Not Attach Compendium DO Not Attach Compendium, Do Not Delete/merge, [id number] 0 17:06:23 Referral None recorded. Procedures None recorded. Surgeries None recorded. Imaging None recorded. Medication Orders ondansetro n HCl 4 mg tablet 2019 INTERFACE [id number], [address], [place], [address], 0 15:17:17 Patient TargetsNo targets recorded. Patient Instructions Encounter Date Encounter Id Patient Instructions Last Modified By Organization Details Last Modified Time 06/07/2020 [id number] Please call your local Health Department for information and questions. [email or web address] Not available 06/07/2020 17:01:47 08/22/2020 [id number] nausea and vomiting: care instructions [email or web address] Not available 08/22/2020 15:17:15 08/24/2020 [id number] Please call your local Health Department for information and questions. [email or web address] Not available 08/23/2020 17:27:15 08/25/2020 [id number] allergies: care instructions Not available 08/25/2020 16:34:10 managing your allergies: care instructions [email or web address] Not available 08/25/2020 16:34:10 08/13/2021 [id number] Please call your local Health Department for information and questions. [email or web address] Not available 08/13/2021 13:19:35 Reason for Referral None Reported. Results Created Date Observation Date Name Description Value Unit Range Abnormal Flag Note LastModifiedBy Organization Detail LastModifiedTime 08/24/20 20 08/24/2020 rapid influ yong virus A + B and SARS CoV + SARS CoV 2 Ag panel , IA, upper respi rator y speci men Flu A negati ve Not Available In-Office Order Internal Use Only DO Not Attach Compendium DO Not Attach Compendium, Do Not Delete/merge, [id number] 08/24/2020 17:25:10 08/24/20 20 08/24/2020 rapid influ yong virus A + B and SARS CoV + SARS CoV 2 Ag panel , IA, upper respi rator y speci men Flu B negati ve Not Available In-Office Order Internal Use Only DO Not Attach Compendium DO Not Attach Compendium, Do Not Delete/merge, [id number] 08/24/2020 17:25:10 08/24/20 20 08/24/2020 rapid SARS CoV 2 Ag, QL IA, respi rator y speci men COVID-19 Antigen Test negati ve Not Available In-Office Order Internal Use Only DO Not Attach Compendium DO Not Attach Compendium, Do Not Delete/merge, [id number] 08/24/2020 17:25:07 05/23/20 20 05/23/2020 rapid SARS CoV 2 Ag, QL IA, respi rator y speci men Rapid COVID-19 SWAB negati ve Not Available In-Office Order Internal Use Only DO Not Attach Compendium DO Not Attach Compendium, Do Not Delete/merge, [id number] 05/23/2020 15:39:54 06/07/20 20 06/07/2020 rapid SARS CoV 2 Ag, QL IA, respi rator y speci men Rapid COVID-19 SWAB negati ve Not Available In-Office Order Internal Use Only DO Not Attach Compendium DO Not Attach Compendium, Do Not Delete/merge, [id number] 06/07/2020 17:01:48 08/25/20 20 08/26/2020 CBC WBC 5.6 x10e3 /uL 3.4-10 .8 Not Available [facility] ([facility]) [address] [facility], [place], [address], 08/26/2020 05:41:04 08/25/20 20 08/26/2020 CBC RBC 4.84 x10e6 /uL 3.77-5 .28 Not Available [facility] ([facility]) [address] [facility] [place], [address], 08/26/2020 05:41:04 08/25/20 20 08/26/2020 CBC hemoglobin 14.5 g/dL 11.1-1 5.9 Not Available [facility] ([facility]) [address] [facility] [place], [address], 08/26/2020 05:41:04 08/25/2008/26/2020 CBC hematocrit 41.6 % 34.0-4 6.6 Not Available [facility] ([facility]) [address] [place], [address], 08/26/2020 05:41:04 08/25/20 20 08/26/2020 CBC MCV 86 fL 79-97 Not Available [facility] ([facility]) [address] [place], [address], 08/26/2020 05:41:04 08/25/20 20 08/26/2020 CBC MCH 30.0 pg 26.6-3 3.0 Not Available [facility] ([facility]) [address] [place], [address], 08/26/2020 05:41:04 08/25/20 20 08/26/2020 CBC MCHC 34.9 g/dL 31.5-3 5.7 Not Available [facility] ([facility]) [address] [place], [address], 08/26/2020 05:41:04 08/25/20 20 08/26/2020 CBC RDW 12.9 % 11.7-1 5.4 Not Available [facility] ([facility]) [address] [place], [address], 08/26/2020 05:41:04 08/25/20 20 08/26/2020 CBC platelets 246 x10e3 /uL 150-45 0 Not Available [facility] ([facility]) [address] [facility] [place], [address], 08/26/2020 05:41:04 08/25/20 20 08/26/2020 CBC NRBC FINANCIAL SERVICES CONSULTANT Not Available [facility] ([facility]) [address] [place], [address], 08/26/2020 05:41:04 08/25/20 20 08/29/2020 TSH + free T4, serum TSH 1.770 uIU/m L 0.450- 4.500 Not Available [facility] ([facility]) [address] [place], [address], 08/30/2020 07:39:11 08/25/20 20 08/29/2020 TSH + free T4, serum T4,free(dire ct) 1.05 NG/dL 0.82-1 .77 Not Available [facility] ([facility]) [address] [facility], [place], [address], 08/30/2020 07:39:11 08/25/20 20 08/29/2020 vitam in B12, serum vitamin B12 >2000 pg/mL 232-12 45 above high normal Not Available [facility] ([facility]) [address] [place], [address], 08/30/2020 07:39:12 08/25/2008/30/2020 heter ophil e Ab, quali tativ e latex agglu tinat ion, serum mononucleosi s test, qual Negati ve negati ve The sensi tivit y of Heter ophil e antib zach testi ng is 80-90 %. Epste in Eng IgM testi ng offer s highe r sensi tivit y. Not Available [facility] ([facility]) [address] [place], [address], 08/30/2020 07:39:12 12/06/20 21 08/13/2021 rapid influ yong virus A + B and SARS CoV + SARS CoV 2 Ag panel , IA, upper respi rator y speci men flu A NEGATI VE positi ve neg ative normal Not Available In-Office Order Internal Use Only DO Not Attach Compendium DO Not Attach Compendium, Do Not Delete/merge, [id number] 08/13/2021 13:19:36 08/13/20 21 08/13/2021 rapid influ yong virus A + B and SARS CoV + SARS CoV 2 Ag panel , IA, upper respi rator y speci men flu B NEGATI VE positi ve neg ative normal Not Available In-Office Order Internal Use Only DO Not Attach Compendium DO Not Attach Compendium, Do Not Delete/merge, [id number] 08/13/2021 13:19:36 08/13/20 21 08/13/2021 rapid influ yong virus A + B and SARS CoV + SARS CoV 2 Ag panel , IA, upper respi rator y speci men sars NEGATI VE positi ve neg ative normal Not Available In-Office Order Internal Use Only DO Not Attach Compendium DO Not Attach Compendium, Do Not Delete/merge, [id number] 08/13/2021 13:19:36 Result Notes None recorded. Problems Name Problem SNOMED Code Status Onset Date Resolution Date Notes Provider Name and Address Organization Details Recorded Time Cat scratch Active GENNARO LANCASTER [address] [place], [address], [facility] 6 12:27:25 Laceration of hand 711817828 Active Mike Jara MD [address] [place], [address], [facility] 6 18:08:17 Problem Notes None recorded. Procedures Surgical History Date Name Laterality Status Provider Name and Address Organization Details Recorded Time 03/04/20 16 Laceration Repair completed GENNARO LANCASTER [address], [place], [address], [facility] 03/04/2016 12:27:25 09/08/19 11 Cataract Surgery completed [facility] 03/04/2016 11:51:51 09/08/19 10 Back Surgery completed [facility] 03/04/2016 11:51:51 09/08/19 08 Back Surgery completed [facility] 03/04/2016 11:51:51 09/08/19 08 Knee Surgery completed [facility] 03/04/2016 11:51:51 09/08/19 07 Knee Surgery completed [facility] 03/04/2016 11:51:51 09/08/19 05 Knee Surgery completed [facility] 03/04/2016 11:51:51 09/08/18 51 Tonsillectomy completed [facility] 03/04/2016 11:51:51 Other completed [facility] 03/04/2016 11:51:51 Hysterectomy completed [facility] 03/04/2016 11:51:51 Other completed [facility] 03/04/2016 11:51:51 Imaging Results None recorded. Procedure Notes None recorded. Medical Equipment None Reported. Allergies No known drug allergies Medications Name Sig Start Date Stop Date Status Note LastModified by Organization Details LastModified Time Singulair 10 mg tablet Take 1 tablet every day by oral route. active Not Available Not Available No t Available ondansetron HCl 4 mg tablet Take 1 tablet every day by oral route. 2019 active Not Available Not Available Not Avai lable triamcinolo ne acetonide 0.5 % topical ointment APPLY A THIN LAYER TO THE AFFECTED AREA(S) BY TOPICAL ROUTE 2 TIMES PER DAY 2016 active Not Available Not Available Not Avai lable Detrol LA 4 mg capsule,ext ended release Take 1 capsule every day by oral route. active Not Available Not Available No t Available ibuprofen 600 mg tablet Take 1 tablet 3 times a day by oral route for 21 days. 2016 active Not Available Not Available Not Avai lable Bactrim DS 800 mg-160 mg tablet Take 1 tablet every 12 hours by oral route for 5 days. 08/25 completed Not Available Not Available Not Available sertraline active Not Available Not Av ailable Not Available Singulair active Not Available Not Renay ilable Not Available pravastatin 08/25 completed Not Available Not Available Not Available metoprolol succinate 50 mg 1 daily active Not Available Not Available No t Available Ambien active Not Available Not Availa ble Not Available Vesicare active Not Available Not Avai lable Not Available Lyrica active Not Available Not Availa ble Not Available Voltaren 1 % topical gel APPLY 2 GRAMS TO THE AFFECTED AREA(S) BY TOPICAL ROUTE 4 TIMES PER DAY active Not Available Not Available No t Available Solu-Medrol (PF) 125 mg/2 mL solution for injection Administe r 125mg IM x 1 04/17 completed Not Available Not Available Not Available amlodipine besylate (bulk) 5 mg 1 daily active Not Available Not Available No t Available oxybutynin chloride 2.5 mg tablet TAKE 1 TABLET BY MOUTH DAILY NEEDED BLADDER SPASM active Not Available Not Available No t Available Vitals Date Recorded Body weight Body temperature Heart rate Oxygen saturation Oxygen saturation in Arterial blood by Pulse oximetry Systolic blood pressure Diastolic blood pressure Provider Name and Address Organization Details Last Updated DateTime 0 83597.4 9 g 98.6 [degF] 69 /min 96 % 96 % 128 mm[Hg] 80 mm[Hg] Hilaria Villalpando [facility] 0 16:09:29 Social History Question Answer Notes LastModified by Organizat ion Details LastModified Time Tobacco Smoking Status [facility] 03/04/2016 11:48:59 Do You Have An Advance Directive? No Information not available 03/14/2016 What Is Your Level Of Alcohol Consumption? Moderate 1-2 Glasses Of Wine A Night [email or web address] Information not available 03/04/2016 How Much Tobacco Do You Chew? None Information not available 03/14/2016 What Is Your Code Status? Full Code Information not available 03/14/2016 Are You Currently Employed? Yes [email or web address] Information not available 03/04/2016 What Type Of Diet Are You Following? REGULAR [email or web address] Information not available 03/04/2016 Hard Of Hearing Or Deaf In One Or Both Ears? No [email or web address] Information not available 03/04/2016 Legally Blind In One Or Both Eyes? No Information not available 03/04/2016 Live Alone Or With Others? Alone Information not available 03/04/2016 Marital Status [email or web address] not available 03/14/2016 What Was The Date Of Your Most Recent Tobacco Screening? 04/17/2017 Information not available 04/01/2019 Performs Monthly Self-breast Exam? Yes [facility] Information not available 03/14/2016 Are You Sexually Active? No [facility] Information not available 03/14/2016 Are You Passively Exposed To Smoke? No [facility] Information not available 03/14/2016 Sex: Unknown Functional Status Question Answer Note LastModified by Organizat ion Details LastModified Time Urinary incontinence assessment performed? Yes [email or web address] Information not available 03/14/2016 Are you able to care for yourself? Yes [email or web address] Information n ot available 03/04/2016 What is your exercise level? Occasional Information not available 03/04/2016 Mental Status None recorded. Family History Nothing Reported. Medical History Condition Response Coronary Artery Disease N Gout N Other Y Kidney Stones N Blood Diseases N Hyperthyroidism N Blood Transfusion N Hospital Admission Other Than N COPD N Depression N Lung Disease N Hypothyroidism N Developmental or Behavioral Disorders N Defects or Inherited Disease N Breast Problem N Diverticulitis/Diverticulosis N Anesthesia Complications N MRSA history N Anxiety Disorder N Varicose Veins N Muscle, Joint, or Bone Problems N Vision or Eye Problems N Arthritis N Head Injury/Concussion N Tuberculosis (incl. exposure) N Congenital Anomalies N Acid Reflux (GERD) N Cancer N Stroke N Endometriosis N Bladder or Kidney Problems N High Cholesterol Y Liver Disease N Psychiatric/Mental Health Condition N Headaches N Schizophrenia N Fibromyalgia N Concussion N Kidney Disease N Allergies/Hayfever N Ear or Hearing Problems N Hospitalizations Y Thyroid Problems N GI Problems N Acne N ADD/ADHD N Skin Problems N Anemia N Diabetes N Seizures/Epilepsy N AIDS/HIV N Congestive Heart Failure (CHF) N Abuse/Domestic Violence N Asthma N Autism N Hepatitis N Heart Disease N Pulmonary Embolism N Pre-Eclampsia N Hypertension N Osteoporosis N Gynecological HistoryNo gynecological history recorded. Obstetrics History GPAL:G 0 P 0 0 0 0 Immunizations Vaccine Type Date Status Note Provider Nam e and Address Organization Details Recorded Time Td (adult), 2 Lf tetanus toxoid, preservative free, adsorbed 6 completed Not Available [facility] 09/25/2019 02:42:52 Past Encounters Encounter ID Performer Location Encounter Start Date Encounter Closed Date Diagnosis/Indication Diagnosis SNOMED-CT Code Diagnosis ICD10 Code Diagnosis Note [id number] Aminta Stallworth [facility] [address] [place] [address] 03/04/2016 10:56:15 03/04/2016 12:22:39 Administration of diphtheria and tetanus vaccine 83090517 Z23 History of Lyme disease 084933442 Z86.19 Cat scratch 777095699 W5 5.03XA Usually lives in [place], has PCP there. Educated pt. on s/s of infection and to let us know if they occur. [place] [id number] Mike Jara MD [facility] [address] [place] [address] 03/14/2016 13:04:25 03/14/2016 14:07:40 Laceration of hand 347110513 S61.411D [id number] JAGDISH LANCASTER-C [facility] [address] [place] [address] 04/02/2017 14:56:17 04/02/2017 16:22:03 Bee sting 700925606 T63.91XA Stable. Pt given solu-medro l injection in office and cream to take home. Pt advised to call or return to clinic if symptoms worsened or did not improve. Shoulder pain 86434926 M 25.511 Suspect rotator cuff tear, and would like to order MRI due to weakness and history of contralate ral rotator cuff repair, but this requires pre-certif ication. Patient is going out of the country for a month on April 26. Discussed requiremen t for conservati ve therapy (6 weeks of PT, ibuprofen, and x-rays) before she can get MRI, but patient states she will call the insurance company and see if she can request an exemption as she is going out of the country. If not, she will look into the cost of the MRI herself. Will also send PT, x-ray, and ibuprofen orders. Patient will follow up as needed/aft er she returns from her trip. [id number] Do[address] PA-C [facility] [address] [place] [address] 04/17/2017 11:19:57 04/17/2017 12:30:02 Cellulitis of skin 735725266 L03.90 [id number] Silas Dozier PA-C [facility] [address] [place] [address] 05/23/2020 15:33:58 05/23/2020 15:51:30 Suspected COVID-19 718956616 Z03.818 Pt presents for covid testing. Symptoms: {{*none}} Risk Factors: {{*none}} Exposure: {{*none}} [id number] GENNARO Talbert [facility] [address] [place] [address] 06/07/2020 16:15:08 06/08/2020 14:07:44 Suspected COVID-19 441430770 Z03.818 Pt presents for covid testing. Symptoms: {{*none see HPI}} Risk Factors: {{*none}} Exposure: {{*none positive COVID-19 other sick contact}} [id number] NICOLE Hall [facility] [address] [place] [address] 08/22/2020 14:37:04 08/22/2020 15:41:21 Nausea 526210663 R11.0 encouraged fluid intake.nathalie lovell send in zofran for nausea. she will be getting COVID tested in two days. [id number] GENNARO Talbert [facility] [address] [place] [address] 08/24/2020 09:15:17 11/29/2020 13:04:45 Suspected COVID-19 269993863 Z03.818 Pt presents for covid testing. See HPI for symptoms and exposure. [id number] NICOLE Hall [facility] [address] [place] [address] 08/25/2020 15:54:54 08/25/2020 16:50:48 Fatigue 15227236 R53.83 has hx of anemia.nathalie l check basic labs for fatigue Allergic rhinitis 712547 04 J30.9 advised to cont with zyrtec. ears clean today . 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 See HPI for symptoms and exposure. Health Concerns Section Related Observation LastModified by Organization Detai ls LastModified Time None Recorded Concern Status LastModified by Organization Details LastModified Time None Recorded Advance Directives Directive N: Payers Encounter Date Sequence Insurance Name Policy Number Policy Jordan Covered Member ID Jordan Member ID Guarantor Name 06/07/2020 1 [place] (MEDICARE REPLACEMENT HMO) [id number] Aila Erman [id number] Aila Erman 08/22/2020 2 [place] [id number] Aila Erman [id number] Aila Erman 08/24/2020 2 [place] [id number] Aila Erman [id number] Aila Erman 08/24/2020 1 [place] Aila Erman [id number] 1 Aila Erman 08/25/2020 2 [place] [id number] Aila Erman [id number] Aila Erman 08/25/2020 1 [place] Aila Erman [id number] Aila Erman 08/13/2021 2 [place] [id number] Aila Erman [id number] Aila Erman 08/13/2021 1 [place] Aila Erman [id number] 1 Aila Erman Notes Date Note Type Note Provider Name and Address Organization Details Recorded Time 06/07/2020 text/html CHIEF COMPLAINT: Pt presents for COVID-19 testing and concerns for exposure. Reviewed medications (see medication list) Reviewed allergies (see allergy list) SYMPTOMS: Denies sinus drainage, cough, fever, chills/aches, shortness of breath, headache, sore throat, red eyes, rash, ear pain/pressure, and loss of taste/smell, unless otherwise noted below. Denies nausea, vomiting, diarrhea or abdominal pain, unless otherwise noted below. Admits to the following symptoms: {{no symptoms*}} HISTORY History of asthma, COPD or other respiratory illness: {{yes no*}} Smoking status: {{none* smoker for lisa smoker exposed to second hand smoke}} Environmental allergies: {{yes no*}} Heart disease or hypertension: {{yes no*}} Diabetes: {{yes no*}} Cancer: {{yes no*}} EXPOSURE Travel: {{[place], [place], [place], [place]# none in the last month}} Exposure: {{none* positive COVID-19 other sick contacts}} GENNARO Talbert [address] [place], [address], [facility] 06/07/2020 17:04:06 08/22/2020 text/html This tele-health PHONE visit performed with patient consent obtained prior to visit. Patient was aware of potential for cost sharing. Tele-health performed with provider and/or patient located remote from office to avoid patient, staff, and provider's risk of exposure to communicable disease during national emergency due to COVID-19 pandemic. HIPAA compliance maintained by both patient and provider being in a quiet, private, HIPAA compliant location. Confirmed patient name and phone visit started: 3:00ended: 3:15 Pt calls today c/o nausea and chills on and off for the last few days. also c/o fatigue.states that she was on a metoprolol for tachycardia and saw Dr Nick on 08/11 , she discussed the fatigue and mm aches with him and he recommended stopping the BB and stopping the statin. she states that she felt great for a few days. then the nausea and chills began. had a runny nose x 2 days , but not today.last night she had an episode of tachycardia , she took a 1/2 of the metoprolol. she is going to see [facility] on friday. does say that she has a wood burning stove. denies vomiting, diarrhea. temp today 98.1she has an appt in two days for COVID testing. NICOLE Hall [address], [place], [address], [facility] 08/22/2020 15:17:50 08/24/2020 text/html CHIEF COMPLAINT: Pt presents for COVID-19 testing and concerns for exposure. SYMPTOMS: Denies sinus drainage, cough, fever, chills/aches, shortness of breath, headache, sore throat, rash, and loss of taste/smell, unless otherwise noted below. Denies nausea, vomiting, and diarrhea, unless otherwise noted below. Admits to the following symptoms (including onset): {{upset stomach, chills# no symptoms}} EXPOSURE Exposure: {{none* positive COVID-19 other sick contacts}}. When? {{}}. When did exposure test positive? {{}}. Travel: {{none in the last 2 weeks*}} Other Reason: {{none*}} Are you a student or employee in [place] [employer]? {{no* yes}} County of residence: {{[place] # }} JAGDISH Talbert-Jesusita [address], [place], [address], [facility] 08/24/2020 18:27:27 08/25/2020 text/html Pt here c/o not being able to hear out of R ear x 10 days. states that she has been able to get out some dark wax. pt states that she wants blood work. states that she feels lousy . has no energy. NICOLE Hall [address], [place], [address], [facility] 08/25/2020 16:34:40 08/13/2021 text/html CHIEF COMPLAINT:Presents for COVID testing for feeling weird since flying. EXPOSURE Exposure: {{none* positive COVID-19 other sick contacts}}. When? {{}}. When did exposure test positive? {{}}. Has patient ever tested positive? {{yes no*}}. If so, when? {{}} Have you had the COVID vaccine? {{BOTH (or 1 J&J)* ONE NONE}}. Is this test required for a flight? {{yes no*}}. Other Reason: {{none*}} nAu Cosme, [facility] [address], [place], [address], [facility] 08/13/2021 16:22:28 OBGyn Episode No OBEpisode recorded.
--- OUTSIDE RECORDS SUMMARY | 2024-12-14 11:27 | XMS_ITS | Data Portability ---
Author Organization [place] - Jenny perez MD, [facility] Address [address] [place] [address] , [address] [place] [address] Assessment No assessment recorded. Plan of Treatment Reminders Order Date Submit Date Provider Last Modified By Organization Details Last Modified Time Details Appointments None recorded. Lab None recorded. Referral None recorded. Procedures None recorded. Surgeries None recorded. Imaging MRI, knee - patella fracture (tip) is the patella button loose 2013 014 [email or web address] Not available 5 13:32:40 Medication Orders None recorded. Patient TargetsNo targets recorded. Patient Instructions Encounter Date Encounter Id Patient Instructions Last Modified By Organization Details Last Modified Time 08/26/2012 [id number] ? ? ?I discussed with her the further treatment.? ? ? She has no extensor lag.? ? ? She has 4+/5 strength in her quad.? ? ? She has no signs for loosening of the patellar component.? ? ? I personally think at this point, we will just continue nonoperative treatment.? ? ? I have discussed with her safe exercises including bike and elliptical.? ? ? I will follow up with her in eight months with repeat x-rays just to make sure there is no loosening of the patellar component.? ? ? I answered her questions. [email or web address] Not available 09/02/2012 16:46:08 07/13/2013 I discussed with her further treatment.? ? ? She seems to be overall very well.? ? ? She has full extension, flexion of 130 degrees on the? ? ?right side.? ? ? On the left side, she has a tiny bit of hyperextension, but also good flexion.? ? ? She has good stability on the right side status post revision knee replacement surgery.? ? ? So, overall, I have reassured her.? ? ? I think she is doing well.? ? ? She has 5/5 strength.? ? ? She has some difficulty stair climbing.? ? ? She is relatively small and stair height clearly is an issue for her.? ? ? I am not too discouraged about that.? ? ? I actually do think that her outcome for a revision knee replacement is fairly good.? ? ? So, I have discussed with her to continue her exercise program, to follow up with us in one year.? ? ? She will need an x-ray in a year.? ? ? [email or web address] Not available 07/22/2013 14:44:45 08/24/2014 [id number] I discussed with her the further treatment. I do think that she is overall doing well. Her weakness in her right knee might be related to a small patella tip fracture. I d on't think that her button is loose but I've recommended an MRI considering that her symptoms have gotten slightly worse. I answered her questions. I have advised against any aggressive exercises that involve bending and pushing off with her right knee. [email or web address] Not available 08/24/2014 12:02:00 11/08/2014 [id number] I discussed with her the further treatment. She has excellent quad strengths however she has difficulties stair climbing I carefully reviewed the three-phase bone scan and there is no evidence of component loosening I looked at her x-rays I cannot see any evidence of component loosening. Recommended for her to follow up with us in 6 months with a new x-ray. She is on her way to [facility] for a trip with her girlfriend. [email or web address] Not available 11/08/2014 16:15:09 2015 [id number] I think she is d oing overall very well with her right knee. Radiographically I see no evidence of patella button loosening. Her symptoms are rather mild and perfectly in line with what a revision knee replacement can do. I've onset her questions. I discussed antibody prophylaxis with dental procedures. I recommended yearly follow-up examinations. I answered her questions. [email or web address] Not available 2015 15:46:37 Reason for Referral None Reported. Results Created Date Observation Date Name Description Value Unit Range Abnormal Flag Note LastModifiedBy Organization Detail LastModifiedTime 08/31/20 12 08/26/2012 imagi ng/di agnos tic resul t No observ ation record ed. [facility] (Imaging) [address] , [place], [address], 04/02/2013 03:35:38 08/24/20 14 08/24/2014 imagi ng/di agnos tic resul t No observ ation record ed. [facility] (Imaging) [address] [place], [address], 08/25/2014 14:02:32 08/24/20 14 08/24/2014 imagi ng/di agnos tic resul t No observ ation record ed. [facility] (Imaging) [address] [place], [address], 08/25/2014 14:02:32 08/26/20 14 08/24/2014 imagi ng/di agnos tic resul t No observ ation record ed. [facility] (Imaging) [address] [place], [address], 08/29/2014 15:24:15 08/26/20 14 08/24/2014 imagi ng/di agnos tic resul t No observ ation record ed. [facility] (Imaging) [address] [place], [address], 08/29/2014 15:24:16 09/29/19 15 09/26/2014 imagi ng/di agnos tic resul t No observ ation record ed. [facility] Not Available 2014 14:28:07 11/03/19 15 11/02/2014 imagi ng/di agnos tic resul t No observ ation record ed. [facility] (Outpt Imaging) [address], [place], [address], 11/09/2014 10:45:59 11/12/19 15 11/02/2014 imagi ng/di agnos tic resul t No observ ation record ed. [email or web address] Not Available 2014 10:51:44 11/14/19 16 2015 x-ray , knee No observ ation record ed. [facility] (Imaging) [address] [place], [address], 11/14/2015 15:45:51 Result Notes None recorded. 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 Procedures Surgical History Date Name Laterality Status Provider Name and Address Organization Details Recorded Time Total Knee Replacement completed NICOLE Zuñiga [address], [address], [facility] Jenny Vasques MD 08/26/2012 14:36:39 Hysterectomy/Over ies completed Not Available [facility] 07/31/2011 06:11:46 Tonsilectomy completed Not Available [facility] 07/31/2011 06:11:46 Knee Arthroscopy completed Not Available [facility] 07/31/2011 06:11:46 Imaging Results Imaging Date Name Status LastModified by Organiz ation Details LastModified Time 08/26/2012 imaging/diag nostic result completed [facility] (Imaging) [address] [place], [address], 04/02/2013 03:35:38 08/24/2014 imaging/diag nostic result completed [facility] (Imaging) [address] [place], [address], 08/25/2014 14:02:32 08/24/2014 imaging/diag nostic result completed [facility] (Imaging) [address] [place], [address], 08/25/2014 14:02:32 08/24/2014 imaging/diag nostic result completed [facility] (Imaging) [address] [place], [address], 08/29/2014 15:24:15 08/24/2014 imaging/diag nostic result completed [facility] (Imaging) [address] [place], [address], 08/29/2014 15:24:16 09/26/2014 imaging/diag nostic result completed [facility] 09/30/2014 14:28:07 11/02/2014 imaging/diag nostic result completed [facility] (Outpt Imaging) [address], [place], [address], 11/09/2014 10:45:59 11/02/2014 imaging/diag nostic result completed [facility] 11/14/2014 10:51:44 2015 x-ray, knee completed [facility] (Imaging) [address] [place], [address], 11/14/2015 15:45:51 Procedure Notes None recorded. Medical Equipment None Reported. Allergies No known drug allergies Medications Name Sig Start Date Stop Date Status Note LastModified by Organization Details LastModified Time diclofenac sodium 50 mg tablet,delayed release active Not Available Not Available Not Available Zoloft active Not Available Not Availa ble Not Available Lipitor active Not Available Not Avail able Not Available Singulair active Not Available Not Renay ilable Not Available Detrol active Not Available Not Availa ble Not Available Indocin active Not Available Not Avail able Not Available Hydrocodone Compound active Not Available Not Available Not Available Boniva active Not Available Not Availa ble Not Available Vitals None Recorded Social History Question Answer Notes LastModified by Organizat ion Details LastModified Time Alcohol Occasional Inform ation not available 07/31/2011 Marital Status In formation not available 07/31/2011 How Much Tobacco Do You Smoke? No dperkin Information not available 07/13/2013 Sex: Unknown Functional Status None recorded. Mental Status None recorded. Family History Relationship Description Onset Age of this Age Resolved Age Notes LastModified by Organization Details LastModified Time Unspecified Relation Osteoarthrit is [email or web address] Not available 2013 12:02:04 Unspecified Relation Malignant neoplastic disease previo usly record ed as Cancer [email or web address] Not available 08/24/2014 12:02:04 Medical History Condition Response Blood Clot/DVT N Bipolar Disease N Coronary Artery Disease N Varicose Vein N Gout N High Blood Pressure N Leukemia N Kidney Stones N Breast Cancer N Reflux Disease N Renal Insufficiency N Lung Cancer N Arrythmia N COPD N Depression N Hypothyroidism N Pneumonia N Narcotic Addiction N TIA N Congestive Heart Failure N Hemophilia N Drug Addiction N Alcoholism N Obesity N Hearing Loss N Psoriatric Arthritis N [place] N Heart Valve Disease N Stroke N other Cancer N Chronic Bowl Obstruction N Colon/Rectal Cancer N Cardiac Pacemaker N Aortic Aneurysm N Skin Cancer N Alzheimer N Rheumatoid Arthritis N Dialysis N Kidney Disease N HIV N Bladder/Urinary Tract Infection N Migraine N Prostate Cancer N Neurophathy N Peptic Ulcer Disease N Hepatitis C N Multiple Sclerosis N Gastritis N Plasmocytoma N Diabetes N Carotid artery disease N Tuberculosis N Chronic Bronchitis N Myocardial Infarction N Parkinson N Lymphoma N Chronic Pain N Dementia N Diverticulitis Y Hyperthyrodism N Asthma N Heart Attack N Vision Problems N Hepatitis B N Ankylosing Spondylitis N Peripheral Vascular Disease N Seizures N Psoriasis N Sleep Apnea N Neuropathy N Pulmonary Embolism N Gynecological HistoryNo gynecological history recorded. Obstetrics History GPAL:G 0 P 0 0 0 0 Past Encounters Encounter ID Performer Location Encounter Start Date Encounter Closed Date Diagnosis/Indication Diagnosis SNOMED-CT Code Diagnosis ICD10 Code Diagnosis Note [id number] [facility] [address], [address] [place] [phone] 10/17/2008 12:23:28 10/17/2008 14:05:[id number] [phone] 12/27/2008 16:55:20 12/27/2008 16:55:24 [id number] [facility] [address], [address] [place] [phone] 01/11/2009 10:51:39 01/11/2009 11:19:53 [id number] [facility] [address], [address] [place] [phone] 02/22/2009 13:35:11 02/22/2009 14:54:32 [id number] [facility] [address], [address] [place] [address],[place] [address] 06/26/2009 18:35:25 07/04/2009 17:23:39 [id number] Vera Franks [facility] [address], [address] [place] [address],[place] [id number] 08/26/2012 14:21:06 08/26/2012 16:20:44 [id number] NICOLE Zuñiga [facility] [address], [address] [facility],[place] [address] 07/13/2013 16:00:07 07/13/2013 16:25:02 [id number] Jordyn Wise [facility] [address], [address] [place] [address],[place] [address] 08/24/2014 11:36:55 08/24/2014 12:15:02 Replacement of total knee joint 261842418 s/p right REv Knee Replacemen t 12/2008,. 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 Outside L TKR [id number] Chase Vasques MD [facility] [address], [address] [place] [address],[place] [address] 2015 15:09:12 2015 15:41:18 Replacement of total knee joint 457957174 Z96.653 s/p right REv Knee Replacemen t 12/2008,. Outside L TKR Health Concerns Section Related Observation LastModified by Organization Detai ls LastModified Time None Recorded Concern Status LastModified by Organization Details LastModified Time None Recorded Advance Directives Directive None Recorded Payers Encounter Date Sequence Insurance Name Policy Number Policy Jordan Covered Member ID Jordan Member ID Guarantor Name 08/26/2012 1 [place] Aila Erman [id number] Joea Erman 08/26/2012 2 [place]ICARE SUPPLEMENT) [id number] Aila Erman [id number] Aila Erman 07/13/2013 1 [place] Aila Erman [id number] Aila Erman 07/13/2013 2 [place]PPLE[place]) [id number] Aila Erman [id number] Aila Erman 08/24/2014 1 [place] Aila Erman [id number] Aila Erman 08/24/2014 2 [place]PPLE[place]) [id number] Aila Erman [id number] Aila Erman 11/08/2014 1 [place] Aila Erman [id number] Aila Erman 11/08/2014 2 [place]PPLE[place]) [id number] Aila Erman [id number] Aila Erman 2015 1 [place]) Aila Erman [id number] Aila Erman 2015 2 [place]) [id number] Aila Erman [id number] Aila Erman Notes Date Note Type Note Provider Name and Address Organization Details Recorded Time 08/26/2012 text/html HPI Pt s/p R TKR revision 3 years ago. Pt states that she feels weak with going up the stairs and has to hold onto the rail to vault herself up each stair. She has no problem going down stairs. She is also states that she feels an achiness in the R knee after prolonged sitting. She is also having some lower back pain which she is being treated for by a spine orthopedist. (h/o spinal fusion) R knee xrays show R TKR revision in good alignment with a superior pole small minimal displaced fracture. No obvious signs of loosening.? ERASMO Quarles - Jenny Vasques MD 09/25/2012 14:45:09 07/13/2013 text/html HPI Chief Complaint: Followup for revision right total knee replacement. Present History: The patient presents as a followup. She is now four years since the revision of her right total knee. She does not have pain necessarily, just weakness on climbing stairs. This is unchanged since her last visit. She does not have pain when she walks any distances. Most of her problem is with stair climbing. Imaging: No new radiographs were taken today? NICOLE Zuñiga [address] [place] [address], [phone], ERASMO Vasques MD 07/22/2013 14:44:46 08/24/2014 text/html HPI Patient presents today for follow-up for her right total knee revision from 2008. She has no pain in the knee. Her main complaint is weakness when she goes up and down hills her up and down stairs. She's been working in a specialized yoga class on strengthening her lower extremities. She continues to tramadol for the world with no problems. If she does encounter some pills she will need he is a cane. She also has lower back problems and she seen Dr. Patterson tomorrow. Her outside left total knee replacements doing well. ? Chase Vasques MD [address] [place] [address], [phone], ERASMO Vasques MD 08/24/2014 12:02:09 11/08/2014 text/html HPI Patient presents today for follow-up for her right knee replacement from 2008. She doesn't have any pain in her knee but still complains of weakness. She has extreme difficulty going up stairs. She Has to hold onto the railing while she goes up the stairs. She has no pain with walking or weakness with walking on flat surfaces. She comes in today to discuss the results of her bone scan.? Chase Vasques MD [address] [place] [address], [phone], ERASMO Vasques MD 11/08/2014 16:15:19 2015 text/html HPI Patient presents today for follow-up for her right knee revision from 2008. Overall her knee is doing well. She can walk on flat surfaces without any difficulties. Her main complaint is going upstairs. She usually has to hold on to the rail all going upstairs. She just returned from a [facility] [place] [facility] and she was there for a month. Her stamina is still good and she can walk for long distances. ? F MD Layo [address] [place] [address], [phone], [facility] - Jenny Vasques MD 2015 15:46:49 OBGyn Episode No OBEpisode recorded.
--- OUTSIDE RECORDS SUMMARY | 2024-12-14 11:27 | XMS_ITS | Data Portability ---
Author Organization [place] [facility], [address] - Address [address] [place] [address] Care Team Providers Care Lead Case Manager Name Role Phone YUMIKO LUIS Primary Care Provider IRIS JACKSON Primary Care Provider [phone] BIENVENIDO RAYGOZA Orthopedic Surgeon [phone] Assessment Encounter Date Assessment Date Assessment LastModified by Organization Details LastModified Time 03/05/2022 03/05/2022 81-year-old female 5-month status post right reverse shoulder arthroplasty, complicated by a stress fracture of the scapular spine for almost 2 months, with little to no healing. I explained to her the nature of her diagnosis. She has a different sling from the time of her surgery. I recommended to cont immobilization and limited activity for the time being. At least use for ADLs. We will also get her a bone stimulator given that these fractures often do not heal. There is little to no healing on the xrays today. We will see her back in 4 weeks with repeat x-rays of her shoulder. She was encouraged to find a pool. A total of 25 minutes was spent preparing for the visit, obtaining the patient? s histories, performing an exam, entering orders, providing prescription management, tests or procedures, providing education to the patient/family/ot her, and documenting in the EMR. Not available 03/05/2022 14:56:36 04/02/2022 04/02/2022 81-year-old female 6-month status post right reverse shoulder arthroplasty, complicated by a stress fracture of the scapular spine 2 months, with healing on the ray. I explained to her the nature of the diagnosis. I recommended to cont with the HEP. At least use for ADLs. We will also continue with the bone stimulator as there is finally signs of fracture healing on the xrays today. We will see her back in 2 months with repeat x-rays of her shoulder. A total of 25 minutes was spent preparing for the visit, obtaining the patient? s histories, performing an exam, entering orders, providing prescription management, tests or procedures, providing education to the patient/family/ot her, and documenting in the EMR. Not available 04/02/2022 15:23:29 08/20/2022 08/20/2022 81-year-old female 11-month status post right reverse shoulder arthroplasty, complicated by a stress fracture of the scapular spine, healing now with a bone stimulator. DOS October 08, 2021. I explained to her the nature of her diagnosis. May use for ADLs. Continue with the stimulator. We will see her back in 3 months with repeat x-rays of her shoulder. She was encouraged to find a pool. A total of 25 minutes was spent preparing for the visit, obtaining the patient? s histories, performing an exam, entering orders, providing prescription management, tests or procedures, providing education to the patient/family/ot her, and documenting in the EMR. Not available 08/28/2022 15:27:54 11/20/2022 11/20/2022 Assessment and Plan: Postoperative evaluation performed for the Right Shoulder for Johanna Moya today. Johanna Moya is 6 mo post surgery; Reverse Shoulder Arthroplasty (RSA) [ 2021-10.08 ] [ ] Radiographs performed of the Right Shoulder today. We discussed plan of care and expectation in the postoperative period after the above. We discussed relevant treatment evaluation and understanding to provide the monotash with a very satifactory experience. Discussion included the use of postoperative Patient Education materials given in an interactive manner including Patient Education materials given to the patient in electronic/digita l and or physical form. Discussion was had with Johanna Moya and family/others accompanying at visit today, I was able to answer all questions. All were very satified with the discussion and plan of care. Follow up: 6 mo XR at follow up: Radiographs of Right Shoulder Overall, she is doing well. She is satisfied with her outcome. She has no pain. She has nearly symmetrical range of motion. Billing: CPT: 08475 Modifier: - XR: [id number] Injection: [email or web address] Not available 11/26/2022 09:41:48 Plan of Treatment Reminders Order Date Submit Date Provider Last Modified By Organization Details Last Modified Time Details Appointments None record ed. Lab None record ed. Referral None record ed. Procedures None record ed. Surgeries None record ed. Imaging XR, should er, 2 or more view 023 11/21/19 23 [facility], [address], [place], [address], 3 11:58:17 XR, should er, 2 or more view 08/20/20 22 [facility], [address], [place], [address], 2 11:44:46 XR, should er, 2 or more view 022 04/02/20 22 [facility], [address], [place], [address], 2 12:44:57 XR, should er, 2 or more view 022 03/05/20 22 [facility], [address], [place], [address], 2 12:39:46 Medication Orders None record ed. Patient TargetsNo targets recorded. Patient Instructions Encounter Date Encounter Id Patient Instructions Last Modified By Organization Details Last Modified Time 03/05/2022 [id number] views of the right shoulder obtained in clinic today and interpreted by myself demonstrate no complications with the reverse shoulder arthroplasty itself. No change in positioning of the components, no broken components. She does have a fracture of the scapular spine. There is little to no healing. Not available 03/05/2022 14:50:53 04/02/2022 [id number] views of the right shoulder obtained in clinic today and interpreted by myself demonstrate no complications with the reverse shoulder arthroplasty itself. No change in positioning of the components. She does have a fracture of the scapular spine. There is healing of it. Not available 04/02/2022 15:24:31 08/20/2022 [id number] views of the right shoulder obtained in clinic today and interpreted by myself demonstrate no complications with the reverse shoulder arthroplasty itself. No change in positioning of the components, no broken components. She does have a well healing fracture of the scapular spine. Previous including pre op xrays reviewed. Not available 08/28/2022 15:24:51 11/20/2022 [id number] Date of exam 2022-11-20 4 views of the Right shoulder including Anteroposterior, Grashey, Scapular Y, and axillary lateral views taken on above date demonstrate intact reverse shoulder arthorplasty implants that are well fixed and in appropriate, stable position. No signs of shifting or loosening. No signs of periprosthetic fracture, subluxation, or dislocation. Joint space well reduced. There is a fracture of the scapular spine which appears to have healed with residual displacement [email or web address] Not available 11/26/2022 09:41:43 Reason for Referral None Reported. Results Created Date Observation Date Name Description Value Unit Range Abnormal Flag Note LastModifiedBy Organization Detail LastModifiedTime 02/06/20 22 XR, shoul barbara, 2 or more view No observ ation record ed. INTERFACE [facility] [address], [place], [address], 02/05/2022 13:31:44 03/05/20 22 XR, shoul barbara, 2 or more view No observ ation record ed. INTERFACE [facility] [address], [place], [address], 03/05/2022 12:39:46 04/02/20 22 XR, shoul barbara, 2 or more view No observ ation record ed. INTERFACE [facility] - [facility] [address], [place], [address], 04/02/2022 12:44:58 04/03/20 22 XR, knee, 4 or more view No observ ation record ed. INTERFACE [facility] - [place] [address], [place], [address], 04/03/2022 08:48:39 08/20/20 22 XR, shoul barbara, 2 or more view No observ ation record ed. INTERFACE [facility] [address], [place], [address], 08/20/2022 11:44:46 08/21/20 22 07/11/2022 XR, shoul barbara, 2 or more view No observ ation record ed. [email or web address] [facility] [address], [place], [address], 09/24/2022 09:17:39 11/21/19 23 XR, shoul barbara, 2 or more view No observ ation record ed. INTERFACE [facility] - [facility] [address], [place], [address], 11/20/2022 11:58:18 Result Notes None recorded. Problems Name Problem SNOMED Code Status Onset Date Resolution Date Notes Provider Name and Address Organization Details Recorded Time Female stress incontinenc e 77616813 Active 2014 Gabriela hoyos [place] - [facility] 2 09:14:00 Obesity 121786397 Active 2014 Gabriela hoyos [place] [facility] 2 09:14:00 Closed fracture of rib 86309596 Active 2014 Gabriela hoyos [place] [facility] 2 09:14:00 Senile osteoporosi s 31544803 Active 2018 Gabriela hoyos [place] [facility] 2 09:14:00 Patient encounter status 702024520 Active 2016 Gabriela hoyos [place] [facility] 2 09:14:00 Hyperpigmen tation of skin 83919639 Active 2016 Gabriela hoyos [place] [facility] 2 09:14:00 Depressive disorder 71986113 Active 2014 Gabriela Lanre null, [place] - [facility] 2 09:14:00 Muscle pain 56324844 Active 2014 Gabriela De Dios [place] [facility] 2 09:14:00 Atrophic vaginitis 78463002 Active 2014 Gabriela De Dios [place] [facility] 2 09:14:00 History of paroxysmal supraventri cular tachycardia 9215519408894 01 Active 2020 Gabriela De Dios [place] [facility] 2 09:14:00 History of Lyme disease 176758114 Active Gabriela Lan[place] [facility] 2 09:14:00 Soft tissue lesion of shoulder region 304642707 Active 2014 Gabriela De [place] [facility] 2 09:14:00 Acute low back pain 731523504 Active 2018 Gabriela De Dios [place] [facility] 2 09:14:00 Anemia 258985472 Active 2017 Gabriela Lan[place] [facility] 2 09:14:00 Easy bruising 939756345 Active 2015 Gabriela De Dios [place] [facility] 2 09:14:00 Chest pain 60804141 Active 2016 Gabriela De Dios [place] [facility] 2 09:14:01 Seasonal allergy 211689523 Active 2021 Gabriela Lan[place] [facility] 2 09:14:01 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 90703432 Active 2018 Gabriela [place] [facility] 2 09:14:01 Poor short-term memory 250637755 Active 2018 Gabriela De Dios [place] [facility] 2 09:14:01 D-dimer above reference range 871993137 Active 2016 Gabriela [place] [facility] 2 09:14:01 Disorder of the peripheral nervous system 01456529 Active 2014 Gabriela De [place] [facility] 2 09:14:01 Osteoporosi s 70879532 Active 2016 Gabriela De Dios [place] [facility] 2 09:14:01 Allergic rhinitis 20989701 Active 2015 Gabriela [place] [facility] 2 09:14:01 Sciatica 75472228 Active 2014 Gabriela De [place] [facility] 2 09:14:01 Hiatal hernia 77703054 Active 2016 Gabriela [place] [facility] 2 09:14:01 History of infectious disease 032561080 Active 2018 Gabriela Lan[place] [facility] 2 09:14:01 History of malignant neoplasm of skin 304650180 Active 2014 Gabriela [place] [facility] 2 09:14:01 Insomnia 048908822 Active 2014 Gabriela [place] [facility] 2 09:14:01 Gastroesoph ageal reflux disease 512173458 Active 2014 Gabriela [place] [facility] 2 09:14:01 History of pneumonia 982130131 Active Yarnell Lanre [place] [facility] 2 09:14:01 History of surgery 313575831 Active 2015 Gabriela Lan[place] [facility] 2 09:14:01 Hyperlipide roderick 39115237 Active 2014 Gabriela [place] [facility] 2 09:14:01 Allergic contact dermatitis 936978871 Active 2014 Gabriela [place] [facility] 2 09:14:01 History of heart failure 457225337 Active Yarnell Lan[place] [facility] 2 09:14:01 Rheumatoid arthritis of multiple joints 504844372 Active 2018 Gabriela Lan[place] [facility] 2 09:14:01 Pain of right knee joint 0046646221604 00 Active 2021 gladis hoyos, [place] - [facility] 2 11:19:31 Postoperati ve state 27701182 Active 2021 gladis mcguire [place] - [facility] 2 11:19:53 Problem Notes None recorded. Procedures Surgical History Date Name Laterality Status Provider Name and Address Organization Details Recorded Time 03/15/20 22 [facility] E0760 BONE STIMULATOR ULTRASOUND EXTREMITY EXOGEN completed TE TIRADO [address],[employer], [place], [address], [facility] - [facility] 03/19/2022 15:55:26 03/15/20 22 [facility] CLINIC DOCUMENTATION 1 completed TE TIRADO [address], [place], [address], [facility] - [facility] 03/19/2022 15:55:52 03/13/20 22 [facility] DOCUMENTATION [place] [address], [place], [address], [facility] - [facility] 03/13/2022 15:24:29 12/07/19 22 Hernia Repair completed Not Available Dash Scheduli ng by [facility] 11/26/2021 12:13:49 11/10/19 22 Cataract Surgery completed Not Available [facility] Sched uling by [facility] 11/26/2021 12:13:49 10/29/19 22 Advance Care Planning - Advance Care Plan/Surrogate Documented - [id number] completed Gabriela De Dios [facility] 10/29/2021 09:14:25 10/08/19 22 Artificial Joint completed Not Available [facility] Sched uling by [facility] 11/12/2021 12:15:18 07/26/19 98 Hysterectomy completed Not Available Dash Schedulin g by [facility] 02/05/2022 13:08:53 Gallbladder Surgery completed Raquel Heller [facility] 08/21/2021 12:45:49 Cataract Surgery completed Not Available [facility] 11/12/2021 12:15:17 Orthopedic Surgery completed Not Available [facility] 11/26/2021 12:13:49 Hysterectomy completed Not Available Champion [facility] Scheduling by [facility] 11/26/2021 12:13:49 Tonsillectomy completed Not Available Da sh Scheduling by [facility] 12/04/2021 11:09:52 Appendectomy completed Not Available [facility] 04/02/2022 12:25:51 Imaging Results Imaging Date Name Status LastModified by Organiz ation Details LastModified Time 02/05/2022 XR, shoulder, 2 or more view completed INTERFACE [facility] [address], [place], [address], 02/05/2022 13:31:44 03/05/2022 XR, shoulder, 2 or more view completed INTERFACE [facility] [address], [place], [address], 03/05/2022 12:39:46 04/02/2022 XR, shoulder, 2 or more view completed INTERFACE [facility] [address], [place], [address], 04/02/2022 12:44:58 04/03/2022 XR, knee, 4 or more view completed INTERFACE [facility] [address], [place], [address], 04/03/2022 08:48:39 08/20/2022 XR, shoulder, 2 or more view completed INTERFACE [facility] [address], [place], [address], 08/20/2022 11:44:46 07/11/2022 XR, shoulder, 2 or more view completed [email or web address] [place] [address], [place], [address], 09/24/2022 09:17:39 11/20/2022 XR, shoulder, 2 or more view completed INTERFACE [facility] [address], [place], [address], 11/20/2022 11:58:18 Procedure Notes None recorded. Medical Equipment None Reported. Allergies Allergen ID Allergen Name Allergen Category Reaction Reaction Severity Criticality Documentation Date Start Date Code Code System Note Provider Name and Address Organization Details Recorded Time 304102 diltiazem Not available palpitati ons mild Not available 10/29/20212020 3443 RxNorm Not Available Not Available Not Available Medications Name Sig Start Date Stop Date Status Note LastModified by Organization Details LastModified Time amoxicillin 500 mg capsule TAKE 4 CAPSULES BY MOUTH 1 HOUR BEFORE DENTAL APPOINTME NT active Not Available Not Available No t Available furosemide 40 mg tablet 40 mg by oral route. active Not Available Not Available No t Available ascorbic acid (vitamin C) 1,000 mg tablet 1000 mg by oral route. active Not Available Not Available No t Available acetaminoph en 325 mg tablet 650 mg by oral route. 2021 active Not Available Not Available Not Avai lable polyethylen e glycol 3350 17 gram oral powder packet 17 g by oral route. 2021 active Not Available Not Available Not Avai lable cetirizine 10 mg tablet 10 mg by oral route. active Not Available Not Available No t Available pravastatin 40 mg tablet 1 {tbl} by oral route. active Not Available Not Available No t Available metoprolol succinate ER 50 mg tablet,exte nded release 24 hr active Not Available Not Available Not Available valacyclovi r 1 gram tablet TAKE 1 TABLET TWICE A DAY active Not Available Not Available No t Available tolterodine ER 4 mg capsule,ext ended release 24 hr TAKE 1 CAPSULE BY MOUTH EVERY DAY active Not Available Not Available No t Available ondansetron HCl 4 mg tablet 4 mg by oral route. active Not Available Not Available No t Available prednisone 20 mg tablet active Not Available Not Available Not Available fluorouraci l 5 % topical cream active Not Available Not Available Not Available sertraline 100 mg tablet TAKE 1 TABLET BY MOUTH EVERY MORNING active Not Available Not Available No t Available amlodipine 5 mg tablet TAKE 1 TABLET BY MOUTH EVERY DAY 10/29 completed Not Available Not Available Not Available ciprofloxac in 500 mg tablet active Not Available Not Available Not Available tramadol 50 mg tablet TAKE 1 TABLET EVERY 6 HOURS NEEDED FOR ACUTE PAIN active Not Available Not Available No t Available potassium chloride ER 20 mEq tablet,exte nded release(par t/cryst) 20 milliequi valents by oral route. active Not Available Not Available No t Available tolterodine 2 mg tablet TAKE 1 TABLET BY MOUTH DAILY NEEDED FOR URINARY DISCOMFOR T active Not Available Not Available No t Available hydrocortis one 2.5 % lotion APPLY SPARINGLY ONCE DAILY TO RASH ON FACE AND NECK. DO NOT APPLY TO NORMAL SKIN. active Not Available Not Available No t Available hydrocodone 7.5 mg-acetamin ophen 325 mg tablet 1 {tbl} by oral route. active Not Available Not Available No t Available cephalexin 500 mg capsule active Not Available Not Available Not Available sodium phosphates 19 gram-7 gram/118 mL enema 1 {enema} by rectal route. 2020 active Not Available Not Available Not Avai lable nitroglycer in 0.4 mg sublingual tablet 0.4 mg by sublingua l route. active Not Available Not Available No t Available montelukast 10 mg tablet active Not Available Not Available Not Available ammonium lactate 12 % topical cream APPLY 1-2 TIMES DAILY TO DRY SKIN ON ARMS, TRUNK, AND LEGS. active Not Available Not Available No t Available mupirocin 2 % topical ointment APPLY 1 TO 2 TIMES DAILY TO SKIN WOUNDS. active Not Available Not Available No t Available zolpidem 5 mg tablet TAKE 1 TABLET BY MOUTH EVERYDAY AT BEDTIME active Not Available Not Available No t Available ibuprofen 600 mg tablet active Not Available Not Available Not Available ketoconazol e 2 % topical cream 1 {applicat orful} by topical route. 2020 active Not Available Not Available Not Avai lable sertraline 50 mg tablet TAKE 1 TABLET BY MOUTH EVERY DAY active Not Available Not Available No t Available rosuvastati n 10 mg tablet TAKE 1 TABLET BY MOUTH EVERY DAY active Not Available Not Available No t Available nitrofurant oin monohydrate /macrocryst als 100 mg capsule active Not Available Not Available Not Available pregabalin 200 mg capsule TAKE 1 CAPSULE BY MOUTH TWICE A DAY active Not Available Not Available No t Available Voltaren 1 % topical gel active Not Available Not Available Not Available cholecalcif eliza (vitamin D3) 50 mcg (2,000 unit) tablet active Not Available Not Available Not Available Prolia 60 mg/mL subcutaneou s syringe 60 mg by sub-q route. active Not Available Not Available No t Available coenzyme Q10 100 mg tablet 1 {tbl} by oral route. active Not Available Not Available No t Available potassium chloride ER 20 mEq tablet,exte nded release active Not Available Not Available Not Available Lotemax SM 0.38 % eye gel drops active Not Available Not Available No t Available Vitals Date Recorded Body height Provider Name an d Address Organization Details Last Updated DateTime 03/05/2022 147.32 cm Millie Celestino [place] - [facility] 03/05/2022 12:45:06 Date Recorded Body height Provider Name an d Address Organization Details Last Updated DateTime 08/20/2022 147.32 cm Millie Celestino [place] [facility] 08/20/2022 11:21:36 Date Recorded Body height Provider Name an d Address Organization Details Last Updated DateTime 11/20/2022 147.32 cm Millie Canadensis [place] - [facility] 11/20/2022 11:14:17 Social History Question Answer Notes LastModified by Organizat ion Details LastModified Time Tobacco Smoking Status Never Smoker Not Available [facility] 10/29/2021 08:59:39 Do You Have An Advance Directive? Yes [email or web address] Information not available 08/15/2021 What Is Your Level Of Alcohol Consumption? Moderate [email or web address] Information not available 08/15/2021 Are You Currently Employed? No [email or web address] Information not available 08/15/2021 What Is The Highest Grade Or Level Of School You Have Completed Or The Highest Degree You Have Received? [id number] [email or web address] Information not available 08/15/2021 What Is Your Occupation? Retired [email or web address] Information not available 08/15/2021 Are You Currently Taking Prescription Pain Medications? No [email or web address] Information not available 11/26/2021 Are You Currently Being Seen For Pain Management? No Information not available 08/21/2021 I Have Received Hospice Services This Year Or Am Currently Receiving Hospice Care No Information not available 08/21/2021 I Have Designated A Power Of Personal Attendant/Surrogat e Decision Maker. If Yes, Who Is This? Bob Johnson Information not available 08/21/2021 Have You Taken Any Oral Or Topical Medications For This Problem? Yes Information not available 08/21/2021 Please List Any Over The Counter Medications(i.e. Tylenol, Motrin, Advil Etc. ) You Have Taken For This Problem And The Length Of Time Taken: AlEVE, 2 Months....salonA dvil , AlEVE. 2 Months, Indomethicin, Salon Pas , Icy Hot, ,CBD Ointment And Tincture, Medical Mj. 2-4 Months, Voltarin Ointment Information not available 08/21/2021 Please List Any Prescribed Medications You Have Taken For This Problem And The Length Of Time Taken: None,.Except Medical MJ ?very SeldomVape Seldom Hard To Tolerate, Ans Kailo Pain Trice Strips...(just 3 Days) [email or web address] Information not available 11/26/2021 Have You Used Ice Or Heat For This Problem? Yes Information not available 08/21/2021 If You Have Used Ice Or Heat For This Problem, Please Specify The Length Of Time: 20 Min More Or Less At A Time Ice20 Min [email or web address] Information not available 11/26/2021 Have You Had Any Physical Therapy Or Home Exercise For This Problem? If Yes, Please Explain: Yes Home Exercisebavk Exercises [email or web address] Information not available 11/26/2021 Have You Had An Injection? If Yes, Has It Been More Than 3 Months Since Your Last Injection? No Information not available 08/21/2021 Have You Used Any Assistive Devices(knee Sleeve, Jimmy Bandage, Brace, Etc.) For This Problem? Knee Strap Brace Knee Strap [email or web address] Information not available 11/26/2021 Are You Experiencing Any Difficulty In Performing Daily Activities To Include Weight Bearing? If Yes, Please Explain: Yes....can?t LifT , Drive W Difficulty, Can?t Reach , Etc Can?t Go Up StairsMust Use Cane To Walk As Knee Feels Unstable Suddenly [email or web address] Information not available 10/29/2021 Are You Participating In Any Weight Loss Or Exercise Programs Pertaining To This Problem? If Yes, Please Explain: Not Anymore Information not available 08/21/2021 Is This An Auto Related Injury? No Information not available 08/21/2021 Is This A Work Related Injury? No Information not available 08/21/2021 What Was The Date Of Your Most Recent Tobacco Screening? 10/29/2021 [email or web address] Information not available 11/20/2022 How Much Tobacco Do You Smoke? No [email or web address] Information not available 08/15/2021 How Many Years Have You Smoked Tobacco? 0 [email or web address] Information not available 08/20/2022 Sex: Unknown Functional Status None recorded. Mental Status None recorded. Family History Nothing Reported. Medical History Condition Response GERD/Ulcers Y Anemia Y Arthritis Y Osteoporosis Y Blood Transfusion Y Gynecological HistoryNo gynecological history recorded. Obstetrics History GPAL:G 0 P 0 0 0 0 Immunizations Vaccine Type Date Status Note Provider Nam e and Address Organization Details Recorded Time Influenza, split virus, trivalent, preservative 3 completed Raquel Heller null, [place] - [facility] 08/21/2021 12:45:48 Influenza, split virus, trivalent, PF 3 completed Raquel [place] - [facility] 08/21/2021 12:45:48 Td (adult), 2 Lf tetanus toxoid, preservative free, adsorbed 7 completed Ra[place] - [facility] 08/21/2021 12:45:48 typhoid, ViCPs 4 completed Ra[place] - [facility] 08/21/2021 12:45:48 yellow fever live 5 completed Ra[place] [facility] 08/21/2021 12:45:48 Influenza, split virus, trivalent, preservative 0 completed Ra[place] [facility] 08/21/2021 12:45:48 pneumococcal polysaccharide PPV23 4 completed Tranelia Kruse [place] - [facility] 11/12/2021 12:25:20 Td (adult), 2 Lf tetanus toxoid, preservative free, adsorbed 5 completed Not Available [facility] 08/19/2022 01:32:17 Influenza, high-dose, trivalent, PF 7 completed Gabriela De Dios [place] - [facility] 10/29/2021 09:14:06 typhoid, ViCPs 2 completed Raquel [place] [facility] 08/21/2021 12:45:48 Pneumococcal conjugate PCV 13 7 completed Tranelia [place]use [place] - [facility] 11/12/2021 12:25:20 cholera, unspecified formulation 7 completed Raquel [place] [facility] 08/21/2021 12:45:48 Tdap 5 completed Ra[place] [facility] 08/21/2021 12:45:48 yellow fever live 9 completed Ra[place] [facility] 08/21/2021 12:45:48 Hep A, unspecified formulation 6 completed Ra[place] [facility] 08/21/2021 12:45:48 IG, unspecified formulation 5 completed Ra[place] [facility] 08/21/2021 12:45:48 typhoid, unspecified formulation 7 completed Ra[place] [facility] 08/21/2021 12:45:48 typhoid, ViCPs 5 completed Ra[place] [facility] 08/21/2021 12:45:48 cholera, unspecified formulation 5 completed Ra[place] [facility] 08/21/2021 12:45:48 IG, unspecified formulation 7 completed Ra[place] [facility] 08/21/2021 12:45:48 IPV 9 completed Ra[place] [facility] 08/21/2021 12:45:48 pneumococcal polysaccharide PPV23 6 completed Ra[place] [facility] 08/21/2021 12:45:48 zoster live 8 completed Tranelia [place] [facility] 11/12/2021 12:25:21 zoster recombinant 9 completed Ra[place] [facility] 08/21/2021 12:45:48 IG, unspecified formulation 5 completed Ra[place] [facility] 08/21/2021 12:45:48 Pneumococcal conjugate PCV 13 5 completed Ra[place] [facility] 08/21/2021 12:45:48 Tdap 2 completed Ra[place] [facility] 08/21/2021 12:45:48 Influenza, split virus, trivalent, preservative 7 completed Ra[place] [facility] 08/21/2021 12:45:48 Influenza, high-dose, trivalent, PF 2 completed Ra[place] [facility] 08/21/2021 12:45:48 Hep B, unspecified formulation 6 completed Ra[place] [facility] 08/21/2021 12:45:48 Influenza, split virus, trivalent, preservative 9 completed Ra[place] [facility] 08/21/2021 12:45:48 Influenza, split virus, quadrivalent, PF 9 completed Ra[place] [facility] 08/21/2021 12:45:48 zoster live 9 completed Tranelia [place] [facility] 11/12/2021 12:25:21 Hep A, unspecified formulation 6 completed Ra[place] [facility] 08/21/2021 12:45:48 Hep B, unspecified formulation 6 completed Ra[place] [facility] 08/21/2021 12:45:48 cholera, unspecified formulation 6 completed Ra[place] [facility] 08/21/2021 12:45:48 Influenza, split virus, trivalent, preservative 1 completed Ra[place] [facility] 08/21/2021 12:45:48 Td (adult), 2 Lf tetanus toxoid, preservative free, adsorbed 6 completed Not Available [facility] 08/19/2022 01:32:18 MMR 5 completed Ra[place] [facility] 08/21/2021 12:45:48 pneumococcal polysaccharide PPV23 0 completed Ra[place] [facility] 08/21/2021 12:45:48 Hep B, unspecified formulation 7 completed Ra[place] [facility] 08/21/2021 12:45:48 Influenza, high-dose, trivalent, PF 5 completed Ra[place] [facility] 08/21/2021 12:45:48 influenza, split (incl. purified surface antigen) 5 completed Ra[place] [facility] 08/21/2021 12:45:48 Influenza, high-dose, trivalent, PF 9 completed [place] [facility] 08/21/2021 12:45:48 zoster recombinant 9 completed Ra[place] [facility] 08/21/2021 12:45:48 zoster live 9 completed Not Available [facility] 08/19/2022 01:32:17 Influenza, high-dose, trivalent, PF 1 completed [place]riela [place] [facility] 10/29/2021 09:14:06 Tdap 6 completed Gabri[place] [facility] 10/29/2021 09:14:06 zoster live 9 completed Not Available [facility] 08/19/2022 01:32:17 Tdap 5 completed Gabriela [place] - [facility] 10/29/2021 09:14:06 Influenza, high-dose, trivalent, PF 8 completed Gabri[place] [facility] 10/29/2021 09:14:06 COVID-19, mRNA, LNP-S, PF, 100 mcg/0.5mL dose or 50 mcg/0.25mL dose 1 completed Gabriela [place] [facility] 10/29/2021 09:14:06 Tdap 7 completed Not Available [facility] 08/19/2022 01:32:18 zoster, unspecified formulation 9 completed Not Available [facility] 08/19/2022 01:32:18 pneumococcal, unspecified formulation 5 completed Gabriela [place] [facility] 10/29/2021 09:14:07 Influenza, high-dose, quadrivalent, PF 0 completed Gabriela De Dios null, [place] - [facility] 10/29/2021 09:14:07 COVID-19, mRNA, LNP-S, PF, 100 mcg/0.5mL dose or 50 mcg/0.25mL dose 1 completed Gabri[place] - [facility] 10/29/2021 09:14:07 Td (adult), 2 Lf tetanus toxoid, preservative free, adsorbed 6 completed Gabriela [place] - [facility] 10/29/2021 09:14:07 COVID-19, mRNA, LNP-S, PF, 100 mcg/0.5mL dose or 50 mcg/0.25mL dose 1 completed Gabriela Lan[place] - [facility] 10/29/2021 09:14:07 COVID-19, mRNA, LNP-S, PF, 100 mcg/0.5mL dose or 50 mcg/0.25mL dose 2 completed Millie hoyos[place] - [facility] 12/04/2021 11:11:37 Past Encounters Encounter ID Performer Location Encounter Start Date Encounter Closed Date Diagnosis/Indication Diagnosis SNOMED-CT Code Diagnosis ICD10 Code Diagnosis Note [id number] KIERA ELLER MD [facility] [address] [place] [address] 08/15/2021 12:24:06 08/15/2021 15:03:06 Pain of right shoulder joint [id number] 4576722 M25.511 Closed fra cture of upper end of humerus 50572979 S42.251P [id number] Mell Sonido [facility] [address] [place] [address] 09/26/2021 10:42:34 09/26/2021 11:30:10 Osteoarthritis 627132219 M19.318 [id number] NICOLE KEMP [facility] [address] [place] [address] 10/03/2021 10:00:12 10/03/2021 11:20:01 Pain of right shoulder joint 8690379993 3067649 M25.511 Closed fra cture of upper end of humerus 22946919 S42.251P Inflammati on of joint of shoulder region 335289754 M13.819 Nonsustain ed paroxysmal supraventricular tachycardia 8859110152 100 I47.1 [id number] NICOLE KEMP [facility] [address] [place] [address] 10/19/2021 10:52:42 10/19/2021 12:04:23 Pain of right shoulder joint 9505985773 2238250 M25.511 Closed fra cture of upper end of humerus 65200466 S42.251P Inflammati on of joint of shoulder region 365595292 M13.819 Nonsustain ed paroxysmal supraventricular tachycardia 0827292275 100 I47.1 [id number] [facility]ALDO [facility]UD[facility] [address] [place] [address] 10/29/2021 08:34:49 10/29/2021 09:49:34 Pain in left knee 5526838681 17330 M25.562 At high risk for fall 45 41055659 65031353 Z91.89 Increased body mass index 33752497 E66.3 Joint pain 17546403 M25. 50 R71.0 R79.82 History of right total knee replacement 0929849840 439854 Z96.651 Implantati on of joint prosthesis 24649869 Z47.1 [id number] OSWALDO CORREA DO [facility] [address] [place] [address] 11/12/2021 12:01:39 11/12/2021 14:03:35 History of total knee arthroplasty 9152461742 105 Z96.448 [id number] Claudio Mariscal MD [facility] [address] [place] [address] 11/26/2021 12:02:29 11/26/2021 13:57:15 Pain of right knee joint 4666856832 92271 M25.561 weakness Postoperative state 1958 5003 Z98.890 bilateral total knee arthroplas ties [id number] Wesley Lux MD [facility] [address] [place] [address] 12/04/2021 11:08:39 12/04/2021 12:41:41 Pain of right shoulder joint 5622920569 5396834 M25.511 History of reverse prosthetic total arthroplasty of right shoulder 7847423712 5089622 Z96.331 [id number] Albert Booth MD [facility] [address] [place] [address] 01/17/2022 10:59:31 01/17/2022 14:31:13 Lumbar radiculopathy 890166376 M54.16 Quadriceps weakness 3009 65914 M62.81 Pain of ri ght knee joint 6425428812 11657 M25.510 [id number] OSWALDO CLAUDIO MD [facility] [address] [place] [address] 02/05/2022 12:49:22 02/05/2022 15:10:49 Pain of right shoulder joint 8127449799 9771266 M25.511 Stress fracture 16040549 M84.30XA [id number] NICO[facility] [address] [place] [address] 03/05/2022 12:05:22 03/05/2022 13:45:41 Pain of right shoulder joint 5700692690 4661038 M25.511 Stress fracture 60028462 M84.30XA History of reverse prosthetic total arthroplasty of right shoulder 8136219906 6766168 Z96.611 Closed fra cture of acromial process of scapula 448815666 S42.121G [id number] TE TIRADO [facility] [address] [place] [address] 03/15/2022 10:57:36 03/20/2022 08:09:16 Stress fracture 43705529 M84.30XA [id number] NICOLE KEMP [facility] [address] [place] [address] 04/02/2022 12:25:44 04/02/2022 14:14:09 Pain of right shoulder joint 5278871185 5736808 M25.511 Stress fracture 09310671 M84.30XA History of reverse prosthetic total arthroplasty of right shoulder 5860248659 5892226 Z96.611 Closed fra cture of acromial process of scapula 413206782 S42.121G [id number] NICOLE KEMP [facility] [address] [place] [address] 08/20/2022 10:57:35 08/20/2022 12:36:07 Pain of right shoulder joint 8455845695 5067438 M25.511 Stress fracture 14862974 M84.30XA History of reverse prosthetic total arthroplasty of right shoulder 7965928310 3490007 Z96.611 Closed fra cture of acromial process of scapula 005598846 S42.121G [id number] LAURI ROTH MD [facility] [address] [place] [address] 11/20/2022 11:01:16 11/20/2022 15:25:45 Pain of right shoulder joint 7794269269 9144073 M25.511 Health Concerns Section Related Observation LastModified by Organization Detai ls LastModified Time None Recorded Concern Status LastModified by Organization Details LastModified Time None Recorded Advance Directives Directive Y: Payers Encounter Date Sequence Insurance Name Policy Number Policy Jordan Covered Member ID Jordan Member ID Guarantor Name 03/05/2022 1 [employer] (MEDICARE REPLACEMENT PPO) [id number] Aila Erman [id number] Aila Erman 03/15/2022 1 [employer] (MEDICARE REPLACEMENT PPO) [id number] Aila Erman [id number] Aila Erman 04/02/2022 1 [employer] (MEDICARE REPLACEMENT PPO) [id number] Aila Erman [id number] Aila Erman 08/20/2022 1 [employer] (MEDICARE REPLACEMENT PPO) [id number] Aila Erman [id number] Johanna Moya 11/20/2022 1 [employer] (MEDICARE REPLACEMENT PPO) [id number] Johanna Moya [id number] Johanna Moya Notes Date Note Type Note Provider Name and Address Organization Details Recorded Time 2 text/html [facility] HPI STANDARDIZEDReported bypatient.1. What side of the body part are we seeing you for today?Right 2. What body part are we seeing you for today?Knee; Patella only 3. What is your hand dominance?Right 4. How long have you had the problem that you are seeing us for today?8 weeks; 6 months; 3 years 5. How did the problem you are seeing us for occur?Lifting; Overuse; Plus shoulder and cracked femur head 6. Are your symptoms (Choose one):No Change 7. Describe your symptoms:Sharp; Dull; Tingling; Burning; Ache; Pins and [place] 8. What makes your symptoms better?Lying Down 9. What makes your symptoms worse?Walking; Standing; Activity in General; Lifting; Carrying; Pushing/Pulling; Throwing; Weight-Bearing; Exercise; Going from sit to stand; Upstairs; Downstairs; Morning; Daytime; Nighttime 10. Discomfort level for body part being seen today on a scale of 0-10 (0=none, 10=extreme) is?Discomfort Level 8/10; Worst Discomfort 10/10Notes:Pt returns. Now 7 weeks of pain. Been wearing the sling. Mrs. Esparza returns to clinic today for follow-up of her right shoulder. She had a right reverse shoulder arthroplasty on October 08, 5 months ago. She did very well initially postoperatively. She reports that within the last week or 2 she has had great difficulty with range of motion and has had pain associated with attempted motion. 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 Since then she has had trouble with her shoulder. This was in mid November. 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 Maci TIRADO [id number], [place], [address], [facility] [employer] [facility] 03/19/2022 15:57:01 2 text/html [facility] HPI STANDARDIZEDReported bypatient.1. What side of the body part are we seeing you for today?Right 2. What body part are we seeing you for today?Knee; Patella only 3. What is your hand dominance?Right 4. How long have you had the problem that you are seeing us for today?8 weeks; 6 months; 3 years 5. How did the problem you are seeing us for occur?Lifting; Overuse; Plus shoulder and cracked femur head 6. Are your symptoms (Choose one):No Change 7. Describe your symptoms:Sharp; Dull; Tingling; Burning; Ache; Pins and [place] 8. What makes your symptoms better?Lying Down 9. What makes your symptoms worse?Walking; Standing; Activity in General; Lifting; Carrying; Pushing/Pulling; Throwing; Weight-Bearing; Exercise; Going from sit to stand; Upstairs; Downstairs; Morning; Daytime; Nighttime 10. Discomfort level for body part being seen today on a scale of 0-10 (0=none, 10=extreme) is?Discomfort Level 8/10; Worst Discomfort 10/10 Mrs. Esparza returns to clinic today for follow-up of her right shoulder. She had a right reverse shoulder arthroplasty on October 08, 2021 which was 6 months ago. 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 She did very well initially postoperatively. She reports that since the last visit she has had some improvement with range of motion and has had pain some pain relief. She had a setback the end of January when she sustained an acromion fx on that side. Feels she is improving in those regards. Been using the bone stimulator that we ordered. 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 Be back in a couple months. NICOLE KEMP [id number] [employer] [address], [place], [address], [place] - [facility] 04/02/2022 15:24:58 2 text/html FOI HPI STANDARDIZEDReported bypatient.1. What side of the body part are we seeing you for today?Right 2. What body part are we seeing you for today?Knee; Patella only 3. What is your hand dominance?Right 4. How long have you had the problem that you are seeing us for today?8 weeks; 6 months; 3 years 5. How did the problem you are seeing us for occur?Lifting; Overuse; Plus shoulder and cracked femur head 6. Are your symptoms (Choose one):No Change 7. Describe your symptoms:Sharp; Dull; Tingling; Burning; Ache; Pins and [place] 8. What makes your symptoms better?Lying Down 9. What makes your symptoms worse?Walking; Standing; Activity in General; Lifting; Carrying; Pushing/Pulling; Throwing; Weight-Bearing; Exercise; Going from sit to stand; Upstairs; Downstairs; Morning; Daytime; Nighttime 10. Discomfort level for body part being seen today on a scale of 0-10 (0=none, 10=extreme) is?Discomfort Level 8/10; Worst Discomfort 10/10Notes:See above. Pt returned in late Feb 2022. Still c/o pain at the time. Ordered a bone stimulator in early Mar which she has been using the past several months. Pt now reports less pain and more motion. [Mrs. Esparza returns to clinic today for follow-up of her right shoulder. She had a right reverse shoulder arthroplasty on October 08, 5 months ago. She did very well initially postoperatively. She reports that within the last week or 2 she has had great difficulty with range of motion and has had pain associated with attempted motion. 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 Since then she has had trouble with her shoulder. This was in mid November.] NICOLE KEMP [address] [employer] [address], [place], [address], [facility] - [facility] 08/28/2022 15:28:37 3 text/html FOI HPI STANDARDIZEDReported bypatient.1. What side of the body part are we seeing you for today?Right 2. What body part are we seeing you for today?Knee; Patella only 3. What is your hand dominance?Right 4. How long have you had the problem that you are seeing us for today?0 weeks; 10 months; 0 years 5. How did the problem you are seeing us for occur?Lifting; Overuse; Plus shoulder and cracked femur head 6. Are your symptoms (Choose one):No Change 7. Describe your symptoms:Sharp; Dull; Tingling; Burning; Ache; Pins and [place] 8. What makes your symptoms better?Lying Down 9. What makes your symptoms worse?Walking; Standing; Activity in General; Lifting; Carrying; Pushing/Pulling; Throwing; Weight-Bearing; Exercise; Going from sit to stand; Upstairs; Downstairs; Morning; Daytime; Nighttime 10. Discomfort level for body part being seen today on a scale of 0-10 (0=none, 10=extreme) is?Discomfort Level 7/10; Worst Discomfort 8/10 HPI:Johanna Moya presents for Right Shoulder postoperative evaluation.The patient the patient is 6 mo post surgery; Reverse Shoulder Arthroplasty (RSA) [ 2021-.31 ] [ ] [ ] [ ]Patient is here for postoperative evaluation and treatment as indicated.Patient is about one year out from right reverse shoulder replacement. Overall, she is doing very well today. She did have a postoperative course complicated by a scapular spine fracture. This has responded well to conservative therapy and at this point she does not have any pain and has nearly full function of her shoulder. She notes an uncomfortable feeling with her some particular behind the back movements but [place] [address], [place], [address], [facility] - [facility] 11/26/2022 09:42:07 OBGyn Episode No OBEpisode recorded.
--- OUTSIDE RECORDS SUMMARY | 2024-12-14 11:28 | XMS_ITS | Continuity of Care Document ---
Author Organization [facility]. If a dditional information is needed, contact Health Information Management at [phone] [place] [address] Phone Care Team Providers Care Textbook Associate Name Role Phone Unavailable Unavailable Unavailable Unavailable Unavailable Unavailable Unavailable Unavailable Unavailable Unavailable Unavailable Unavailable Unavailable Unavailable Unavailable Unavailable Unavailable Unavailable Unavailable Unavailable Unavailable Unavailable Unavailable Unavailable Unavailable Unavailable Unavailable Unavailable Unavailable Unavailable Unavailable Unavailable Unavailable Unavailable Unavailable Unavailable Unavailable Unavailable Unavailable Unavailable Unavailable Unavailable Unavailable Unavailable Unavailable Note Charmaine Wills- 4 ? ? ? 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 : No Primary Language : Gambian Elma Montano - 04/16/24 09:09 EDT Patient Preferred Method of Communication Phone Call Vital Signs/Height & Weight Height - in : 57 in Height - cm : 144.8 cm Weight - kg : 61.60 kg Weight - lbs : 135.8 lb Body Mass Index : 29.4 kg/m2 Body Surface Area. : 1.57 m2 Temperature Fahrenheit : 97.8 DegF(Converted to: 36.6 DegC) Temperature Method : Oral Heart Rate : 118 bpm Heart Rhythm : Regular Respiratory Rate : 18 br/min Systolic Blood Pressure : 112 mmHg Diastolic Blood Pressure : 64 mmHg BP Method : Manual BP Site : Left upper arm Oxygen Saturation : 93 % O2 Delivery Device : Room Air Pain Score : 0 Elma Montano - 04/16/24 09:09 EDT Depression Screening/PHQ (2 and 9) Little Interest, Pleasure in Activities (ref) : Not at all Feeling Down, Depressed, Hopeless : Not at all Initial Depression Screening Score : 0 PHQ2 Depression Screening Result : Negative Time Spent Completing Depression Screening : 5 min Time Spent Required for Visit : Yes Elma Montano - 04/16/24 09:09 EDT First Point of Contact Screening Do you have any of the following symptoms? : None In the past 3 weeks have you traveled either within the [place] o : No Have you had close contact with someone who has traveled in : No Have you been in close contact with a person confirmed to kang : No Elma Montano - 04/16/24 09:09 EDT Allergy (As Of: 04/16/24 09:21:50 EDT) Allergies (Active) NKA Estimated Onset Date: Unspecified ; Created By: Codi Espino RN; Reaction Status: Active ; Category: Drug ; Substance: NKA ; Type: Allergy ; Updated By: Codi Espino RN; Source: Patient ; Reviewed Date: 04/16/24 09:10 EDT No Known Medication Allergies Estimated Onset Date: Unspecified ; Created By: Codi Espino RN; Reaction Status: Active ; Category: Drug ; Substance: No Known Medication Allergies ; Type: Allergy ; Updated By: Codi Espino RN; Source: Patient ; Reviewed Date: 04/16/24 09:10 EDT Problem History (As Of: 04/16/24 09:21:50 EDT) Problems(Active) BCC (basal cell carcinoma) (SNOMED CT:720217591 ) Name of Problem: BCC (basal cell carcinoma) ; Recorder: Sandoval YEN[LAUREN]Himanshu; Confirmation: Confirmed ; Classification: Medical ; Code: [id number] ; Contributor System: [employer] ; Last Updated: 07/04/2020 11:50 EDT ; Life Cycle Date: 07/04/2020 ; Life Cycle Status: Active ; Responsible Provider: Sandoval YEN[LAUREN]Himanshu; Vocabulary: SNOMED CT CAD (coronary artery disease) (SNOMED CT:51547756 ) Name of Problem: CAD (coronary artery disease) ; Recorder: Sandoval YEN[LAUREN]Himanshu; Confirmation: Confirmed ; Classification: Medical ; Code: [id number] ; Contributor System: Power[employer] ; Last Updated: 05/09/2021 06:22 EDT ; Life Cycle Date: 05/09/2021 ; Life Cycle Status: Active ; Responsible Provider: Sandoval YEN[LAUREN]Himanshu; Vocabulary: SNOMED CT Chronic GERD (SNOMED CT:212706099 ) Name of Problem: Chronic GERD ; Recorder: Himanshu Gaspar; Confirmation: Confirmed ; Classification: Medical ; Code: [id number] ; Contributor System: Power[employer] ; Last Updated: 07/04/2020 11:32 EDT ; Life Cycle Date: 07/04/2020 ; Life Cycle Status: Active ; Responsible Provider: Sandoval CINTRON]Himanshu; Vocabulary: SNOMED CT DDD (degenerative disc disease), lumbar (SNOMED CT:22887257 ) Name of Problem: DDD (degenerative disc disease), lumbar ; Recorder: Sandoval YEN[LAUREN]Himanshu; Confirmation: Confirmed ; Classification: Medical ; Code: [id number] ; Contributor System: [employer] ; Last Updated: 07/04/2020 11:32 EDT ; Life Cycle Date: 07/04/2020 ; Life Cycle Status: Active ; Responsible Provider: Sandoval YEN[LAUREN]Himanshu; Vocabulary: SNOMED CT Diastolic CHF (SNOMED CT:3605090910 ) Name of Problem: Diastolic CHF ; Recorder: Julianne YEN[Reina]Salvador; Confirmation: Confirmed ; Classification: Medical ; Code: [id number] ; Contributor System: [employer] ; Last Updated: 07/02/2021 15:15 EDT ; Life Cycle Date: 07/02/2021 ; Life Cycle Status: Active ; Responsible Provider: Julianne YEN[Reina]Salvador; Vocabulary: SNOMED CT Fibromyalgia (SNOMED CT:984109423 ) Name of Problem: Fibromyalgia ; Recorder: Sandoval YEN[LAUREN]Himanshu; Confirmation: Confirmed ; Classification: Medical ; Code: [id number] ; Contributor System: PowerChart ; Last Updated: 07/04/2020 11:57 EDT ; Life Cycle Date: 07/04/2020 ; Life Cycle Status: Active ; Responsible Provider: Sandoval YEN[LAUREN]Himanshu; Vocabulary: SNOMED CT HLD (hyperlipidemia) (SNOMED CT:07335864 ) Name of Problem: HLD (hyperlipidemia) ; Recorder: Sandoval YEN[LAUREN]Himanshu; Confirmation: Confirmed ; Classification: Medical ; Code: [id number] ; Contributor System: PowerChart ; Last Updated: 07/04/2020 11:34 EDT ; Life Cycle Date: 07/04/2020 ; Life Cycle Status: Active ; Responsible Provider: Himanshu Gaspar; Vocabulary: SNOMED CT Insomnia (SNOMED CT:031609716 ) Name of Problem: Insomnia ; Recorder: Himanshu Gaspar; Confirmation: Confirmed ; Classification: Medical ; Code: [id number] ; Contributor System: PowerChart ; Last Updated: 07/04/2020 11:34 EDT ; Life Cycle Date: 07/04/2020 ; Life Cycle Status: Active ; Responsible Provider: Himanshu Gaspar; Vocabulary: SNOMED CT Liver enzyme elevation (SNOMED CT:4585853204 ) Name of Problem: Liver enzyme elevation ; Recorder: Himanshu Gaspar; Confirmation: Confirmed ; Classification: Medical ; Code: [id number] ; Contributor System: Power[employer] ; Last Updated: 05/06/2023 09:28 EDT ; Life Cycle Date: 05/06/2023 ; Life Cycle Status: Active ; Responsible Provider: Himanshu Gaspar; Vocabulary: SNOMED CT Neuropathy (SNOMED CT:9317836214 ) Name of Problem: Neuropathy ; Recorder: Himanshu Gaspar; Confirmation: Confirmed ; Classification: Medical ; Code: [id number] ; Contributor System: PowerChart ; Last Updated: 07/04/2020 11:34 EDT ; Life Cycle Date: 07/04/2020 ; Life Cycle Status: Active ; Responsible Provider: Himanshu Gaspar; Vocabulary: SNOMED CT Osteoarthritis of right knee (SNOMED CT:5320286027 ) Name of Problem: Osteoarthritis of right knee ; Recorder: Himanshu Gaspar; Confirmation: Confirmed ; Classification: Medical ; Code: [id number] ; Contributor System: PowerChart ; Last Updated: 07/04/2020 11:33 EDT ; Life Cycle Date: 07/04/2020 ; Life Cycle Status: Active ; Responsible Provider: Himanshu Gaspar; Vocabulary: SNOMED CT Osteoarthritis, hand (SNOMED CT:37629571 ) Name of Problem: Osteoarthritis, hand ; Recorder: Sandoval YEN[Himanshu WOOD; Confirmation: Confirmed ; Classification: Medical ; Code: 68742660 ; Contributor System: PowerChart ; Last Updated: 07/04/2020 11:54 EDT ; Life Cycle Date: 07/04/2020 ; Life Cycle Status: Active ; Responsible Provider: Himanshu Gaspar; Vocabulary: SNOMED CT Osteoporosis (SNOMED CT:433747207 ) Name of Problem: Osteoporosis ; Recorder: Himanshu Gaspar; Confirmation: Confirmed ; Classification: Medical ; Code: 530139616 ; Contributor System: PowerChart ; Last Updated: 07/04/2020 11:33 EDT ; Life Cycle Date: 07/04/2020 ; Life Cycle Status: Active ; Responsible Provider: Himanshu Gaspar; Vocabulary: SNOMED CT Polypharmacy (SNOMED CT:549365435 ) Name of Problem: Polypharmacy ; Recorder: Himanshu Gaspar; Confirmation: Confirmed ; Classification: Medical ; Code: 449988279 ; Contributor System: PowerChart ; Last Updated: 07/04/2020 12:15 EDT ; Life Cycle Date: 07/04/2020 ; Life Cycle Status: Active ; Responsible Provider: Sandoval YEN[LAUREN]Himanshu; Vocabulary: SNOMED CT PSVT (paroxysmal supraventricular tachycardia) (SNOMED CT:567289101 ) Name of Problem: PSVT (paroxysmal supraventricular tachycardia) ; Recorder: Arthur Aguilar; Confirmation: Confirmed ; Classification: Medical ; Code: [id number] ; Contributor System: PowerChart ; Last Updated: 04/05/2020 16:59 EDT ; Life Cycle Date: 04/05/2020 ; Life Cycle Status: Active ; Responsible Provider: Mary Jane CABALLERO[Arthur Ayers; Vocabulary: SNOMED CT PUD (peptic ulcer disease) (SNOMED CT:82217972 ) Name of Problem: PUD (peptic ulcer disease) ; Recorder: Sandoval YEN[LAUREN]Himanshu; Confirmation: Confirmed ; Classification: Medical ; Code: [id number] ; Contributor System: Power[employer] ; Last Updated: 05/06/2023 09:31 EDT ; Life Cycle Date: 05/06/2023 ; Life Cycle Status: Active ; Responsible Provider: Himanshu Gaspar; Vocabulary: SNOMED CT SCC (squamous cell carcinoma) (SNOMED CT:123392192 ) Name of Problem: SCC (squamous cell carcinoma) ; Recorder: Himanshu Gaspar; Confirmation: Confirmed ; Classification: Medical ; Code: 694578698 ; Contributor System: Power[employer] ; Last Updated: 07/04/2020 11:50 EDT ; Life Cycle Date: 07/04/2020 ; Life Cycle Status: Active ; Responsible Provider: Himanshu Gaspar; Vocabulary: SNOMED CT Seasonal allergies (SNOMED CT:3321506093 ) Name of Problem: Seasonal allergies ; Recorder: Himanshu Gaspar; Confirmation: Confirmed ; Classification: Medical ; Code: [id number] ; Contributor System: [employer] ; Last Updated: 07/04/2020 11:33 EDT ; Life Cycle Date: 07/04/2020 ; Life Cycle Status: Active ; Responsible Provider: Himanshu Gaspar; Vocabulary: SNOMED CT Urinary incontinence (SNOMED CT:4074515807 ) Name of Problem: Urinary incontinence ; Recorder: Himanshu Gaspar; Confirmation: Confirmed ; Classification: Medical ; Code: 8114665536 ; Contributor System: PowerChart ; Last Updated: 07/04/2020 11:37 EDT ; Life Cycle Date: 07/04/2020 ; Life Cycle Status: Active ; Responsible Provider: Sandoval YEN[Himanshu WOOD; Vocabulary: SNOMED CT Vitamin D deficiency (SNOMED CT:34865210 ) Name of Problem: Vitamin D deficiency ; Recorder: Hudson Bridges MD[S]Carey; Confirmation: Confirmed ; Classification: Medical ; Code: 97499995 ; Contributor System: PowerChart ; Last Updated: 09/29/2020 10:38 EST ; Life Cycle Date: 09/29/2020 ; Life Cycle Status: Active ; Responsible Provider: Hudson Bridges MD[S]Carey; Vocabulary: SNOMED CT Family History Family History (As Of: 04/16/24 09:21:51 EDT) Father: Relation: Father ; Gender: Male ; Nomenclature: CAD - Coronary artery disease ; Value: Negative Nomenclature: Cardiomyopathy ; Value: Negative Nomenclature: Congenital heart disease ; Value: Negative Nomenclature: Sudden cardiac ; Value: Negative Nomenclature: Stroke ; Value: Negative Brother: Relation: Brother ; Gender: Male ; Nomenclature: Stroke ; Value: Negative Nomenclature: CAD - Coronary artery disease ; Value: Negative Nomenclature: Cardiomyopathy ; Value: Negative Nomenclature: Congenital heart disease ; Value: Negative Nomenclature: Sudden cardiac ; Value: Negative Sister: Relation: Sister ; Gender: Female ; Nomenclature: Stroke ; Value: Negative Nomenclature: CAD - Coronary artery disease ; Value: Negative Nomenclature: Cardiomyopathy ; Value: Negative Nomenclature: Congenital heart disease ; Value: Negative Nomenclature: Sudden cardiac ; Value: Negative Identical Twin: Relation: Identical Twin ; Nomenclature: Stroke ; Value: Negative Nomenclature: CAD - Coronary artery disease ; Value: Negative Nomenclature: Cardiomyopathy ; Value: Negative Nomenclature: Congenital heart disease ; Value: Negative Nomenclature: Sudden cardiac ; Value: Negative Son: Relation: Son ; Gender: Male ; Nomenclature: Stroke ; Value: Negative Nomenclature: CAD - Coronary artery disease ; Value: Negative Nomenclature: Cardiomyopathy ; Value: Negative Nomenclature: Congenital heart disease ; Value: Negative Nomenclature: Sudden cardiac ; Value: Negative Daughter: Relation: Daughter ; Gender: Female ; Nomenclature: Stroke ; Value: Negative Nomenclature: CAD - Coronary artery disease ; Value: Negative Nomenclature: Cardiomyopathy ; Value: Negative Nomenclature: Congenital heart disease ; Value: Negative Nomenclature: Sudden cardiac ; Value: Negative Grandfather (M): Relation: Grandfather (M) ; Nomenclature: Stroke ; Value: Negative Nomenclature: CAD - Coronary artery disease ; Value: Negative Nomenclature: Cardiomyopathy ; Value: Negative Nomenclature: Congenital heart disease ; Value: Negative Nomenclature: Sudden cardiac ; Value: Negative Grandmother (M): Relation: Grandmother (M) ; Nomenclature: Stroke ; Value: Negative Nomenclature: CAD - Coronary artery disease ; Value: Negative Nomenclature: Cardiomyopathy ; Value: Negative Nomenclature: Congenital heart disease ; Value: Negative Nomenclature: Sudden cardiac ; Value: Negative Grandfather (P): Relation: Grandfather (P) ; Nomenclature: Stroke ; Value: Negative Nomenclature: CAD - Coronary artery disease ; Value: Negative Nomenclature: Cardiomyopathy ; Value: Negative Nomenclature: Congenital heart disease ; Value: Negative Nomenclature: Sudden cardiac ; Value: Negative Grandmother (P): Relation: Grandmother (P) ; Nomenclature: Stroke ; Value: Negative Nomenclature: CAD - Coronary artery disease ; Value: Negative Nomenclature: Cardiomyopathy ; Value: Negative Nomenclature: Congenital heart disease ; Value: Negative Nomenclature: Sudden cardiac ; Value: Negative Procedure History - Procedure History (As Of: 04/16/24 09:21:51 EDT) Procedure Dt/Tm: 10/16/2019 ; Anesthesia Minutes: 0 ; Procedure Name: Transthoracic echocardiography ; Procedure Minutes: 0 ; Comments: 04/17/2020 13:50 EDT - Mary Jnae CABALLERO[S]Arthur Outside study, normal left ventricular size and systolic function, ejection fraction of 55 to 60%, grossly normal right ventricular size and systolic function, no significant valve abnormality seen. ; Last Reviewed Dt/Tm: 04/16/24 09:10:44 EDT Procedure Dt/Tm: 04/28/2020 ; Anesthesia Minutes: 0 ; Procedure Name: Myocardial perfusion scan ; Procedure Minutes: 0 ; Comments: 04/28/2020 14:44 EDT - Mary Jane CABALLERO[S]Arthur There is a small reversible distal anterior/apical defect consistent with ischemia. The left ventricular ejection fraction is calculated at 74%. Left ventricular wall motion is normal in all regions. The probability of ischemia is high ; Last Reviewed Dt/Tm: 04/16/24 09:10:44 EDT Anesthesia Minutes: 0 ; Procedure Name: Thoracic ; Procedure Minutes: 0 ; Comments: 07/04/2020 11:43 CLEVE Nick MD[S], Himanshu Farias 2000 nikhil and microdiscectomy ; Last Reviewed Dt/Tm: 04/16/24 09:10:44 EDT Anesthesia Minutes: 0 ; Procedure Name: Left knee ; Procedure Minutes: 0 ; Comments: 07/04/2020 11:40 CLEVE Nick MD[S]Himanshu Replacement. at the age of 64. [place] ; Last Reviewed Dt/Tm: 04/16/24 09:10:44 EDT Anesthesia Minutes: 0 ; Procedure Name: Right knee ; Procedure Minutes: 0 ; Comments: 07/04/2020 11:41 CLEVE iNck MD[S]Himanshu replacement 2019 ; Last Reviewed Dt/Tm: 04/16/24 09:10:44 EDT Procedure Dt/Tm: 07/04/2019 ; Anesthesia Minutes: 0 ; Procedure Name: Bone density scan ; Procedure Minutes: 0 ; Last Reviewed Dt/Tm: 04/16/24 09:10:44 EDT Procedure Dt/Tm: 07/04/2019 ; Anesthesia Minutes: 0 ; Procedure Name: Mammogram ; Procedure Minutes: 0 ; Comments: 07/04/2020 11:21 EDT Sindy Genao normal per pt ; Last Reviewed Dt/Tm: 04/16/24 09:10:44 EDT Procedure Dt/Tm: 07/04/2016 ; Anesthesia Minutes: 0 ; Procedure Name: Colonoscopy ; Procedure Minutes: 0 ; Comments: 07/04/2020 11:22 EDT Sindy Genao normal per pt ; Last Reviewed Dt/Tm: 04/16/24 09:10:44 EDT Procedure Dt/Tm: 10/15/2019 ; Anesthesia Minutes: 0 ; Procedure Name: Chest CT ; Procedure Minutes: 0 ; Last Reviewed Dt/Tm: 04/16/24 09:10:44 EDT Procedure Dt/Tm: 06/13/2020 ; Anesthesia Minutes: 0 ; Procedure Name: Cardiac catheterization ; Procedure Minutes: 0 ; Last Reviewed Dt/Tm: 04/16/24 09:10:44 EDT Procedure Dt/Tm: 04/28/2023 ; Anesthesia Minutes: 0 ; Procedure Name: CAT scan ; Procedure Minutes: 0 ; Last Reviewed Dt/Tm: 04/16/24 09:10:44 EDT Procedure Dt/Tm: 05/01/2023 ; Anesthesia Minutes: 0 ; Procedure Name: Upper GI (gastrointestinal) endoscopy ; Procedure Minutes: 0 ; Last Reviewed Dt/Tm: 04/16/24 09:10:44 EDT Medication History Medication List (As Of: 04/16/24 09:21:51 EDT) Normal Order Prolia 60 mg syringe : Prolia 60 mg syringe ; Status: Ordered ; Ordered As Mnemonic: Prolia ; Simple Display Line: 60 mg, SQ (Subcutaneous), ONCE ; Ordering Provider: Sandoval YEN[S], Himanshu Farias; Catalog Code: denosumab ; Order Dt/Tm: 01/10/21 10:13:25 EDT ; Comment: ICD-10: M81.0, Order for dose due in March 2021 Prescription/Discharge Order azelastine nasal : azelastine nasal ; Status: Prescribed ; Ordered As Mnemonic: azelastine nasal 0.15% spray ; Simple Display Line: 1 spray, Nasal, BID, for 90 day, 1 each, 1 Refill(s) ; Ordering Provider: Sandoval YEN[S]Himanshu; Catalog Code: azelastine nasal ; Order Dt/Tm: 07/11/22 13:07:42 EDT diclofenac topical : diclofenac topical ; Status: Prescribed ; Ordered As Mnemonic: diclofenac topical 3% topical gel ; Simple Display Line: 0.5 g, Topical, BID, 50 g, 0 Refill(s) ; Ordering Provider: Sandvoal YEN[S]Himanshu; Catalog Code: diclofenac topical ; Order Dt/Tm: 07/27/20 11:16:26 EST furosemide : furosemide ; Status: Prescribed ; Ordered As Mnemonic: furosemide 40 mg oral tablet ; Simple Display Line: 1 tab, PO (by Mouth), Daily, Take as needed for edema, PRN: edema, 60 tab, 2 Refill(s) ; Ordering Provider: Julianne YEN[S]Salvador; Catalog Code: furosemide ; Order Dt/Tm: 01/14/22 15:47:46 EDT oxybutynin : oxybutynin ; Status: Prescribed ; Ordered As Mnemonic: oxybutynin 5 mg oral tablet ; Simple Display Line: 1 tab, PO (by Mouth), Daily, PRN: for urinary discomfort, 90 tab, 3 Refill(s) ; Ordering Provider: Sandoval YEN[S]Himanshu; Catalog Code: oxybutynin ; Order Dt/Tm: 04/03/23 15:22:42 EDT potassium chloride : potassium chloride ; Status: Prescribed ; Ordered As Mnemonic: Potassium Chloride (Eqv-K-Tab) 20 mEq oral tablet, extended release ; Simple Display Line: See Instructions, 1 tab PO (by Mouth) Daily when taking furosemide, 30 tab, 5 Refill(s) ; Ordering Provider: Julianne YEN[S]Salvador; Catalog Code: potassium chloride ; Order Dt/Tm: 07/02/21 15:22:49 EDT pregabalin : pregabalin ; Status: Prescribed ; Ordered As Mnemonic: pregabalin 200 mg oral capsule ; Simple Display Line: 1 cap, PO (by Mouth), BID, 180 cap, 3 Refill(s) ; Ordering Provider: Sandoval YEN[S]Himanshu; Catalog Code: pregabalin ; Order Dt/Tm: 04/03/23 15:25:16 EDT sertraline : sertraline ; Status: Prescribed ; Ordered As Mnemonic: sertraline 100 mg oral tablet ; Simple Display Line: 1 tab, PO (by Mouth), Daily, 90 tab, 3 Refill(s) ; Ordering Provider: Sandoval YEN[S]Himanshu; Catalog Code: sertraline ; Order Dt/Tm: 04/03/23 15:27:19 EDT Home Meds ammonium lactate topical : ammonium lactate topical ; Status: Documented ; Ordered As Mnemonic: ammonium lactate topical 12% cream ; Simple Display Line: 1 appltn, Topical, BID, 280 g, 0 Refill(s) ; Catalog Code: ammonium lactate topical ; Order Dt/Tm: 04/03/23 14:56:32 EDT ascorbic acid : ascorbic acid ; Status: Documented ; Ordered As Mnemonic: Vitamin C 1000 mg oral tablet ; Simple Display Line: 1 tab, PO (by Mouth), Daily, 30 tab, 0 Refill(s) ; Catalog Code: ascorbic acid ; Order Dt/Tm: 11/22/20 10:38:27 EDT atorvastatin : atorvastatin ; Status: Documented ; Ordered As Mnemonic: atorvastatin 40 mg oral tablet ; Simple Display Line: 1 tab, PO (by Mouth), Daily, 30 tab, 0 Refill(s) ; Catalog Code: atorvastatin ; Order Dt/Tm: 04/16/24 09:20:10 EDT calcium carbonate : calcium carbonate ; Status: Documented ; Ordered As Mnemonic: calcium carbonate 1000 mg oral tablet, chewable ; Simple Display Line: 1 tab, Chewed, Daily, 0 Refill(s) ; Catalog Code: calcium carbonate ; Order Dt/Tm: 11/22/20 10:39:21 EDT cholecalciferol : cholecalciferol ; Status: Documented ; Ordered As Mnemonic: Vitamin D3 1000 intl units oral tablet ; Simple Display Line: 1 tab, PO (by Mouth), Daily, 30 tab, 0 Refill(s) ; Catalog Code: cholecalciferol ; Order Dt/Tm: 07/02/21 15:00:09 EDT cimetidine : cimetidine ; Status: Documented ; Ordered As Mnemonic: Tagamet 200 mg oral tablet ; Simple Display Line: 2 tab, PO (by Mouth), BID, for 14 day, 56 tab, 0 Refill(s) ; Catalog Code: cimetidine ; Order Dt/Tm: 04/03/23 15:06:43 EDT cyanocobalamin : cyanocobalamin ; Status: Documented ; Ordered As Mnemonic: Vitamin B12 1000 mcg oral tablet ; Simple Display Line: 1 tab, PO (by Mouth), Daily, 30 tab, 0 Refill(s) ; Catalog Code: cyanocobalamin ; Order Dt/Tm: 11/22/20 10:37:53 EDT denosumab : denosumab ; Status: Documented ; Ordered As Mnemonic: Prolia 60 mg/mL subcutaneous solution ; Simple Display Line: 60 mg, SQ (Subcutaneous), Q6M, 0 Refill(s) ; Catalog Code: denosumab ; Order Dt/Tm: 07/04/20 11:22:29 EDT ; Comment: last dose 06/2020 hydrocortisone topical : hydrocortisone topical ; Status: Documented ; Ordered As Mnemonic: hydrocortisone topical 2.5% lotion ; Simple Display Line: appltn, Topical, Daily, PRN: rash, 0 Refill(s) ; Catalog Code: hydrocortisone topical ; Order Dt/Tm: 03/20/20 14:36:55 EDT Misc Rx : Misc Rx ; Status: Documented ; Ordered As Mnemonic: Voltaren 2.5% ; Simple Display Line: 0 Refill(s) ; Catalog Code: Misc Rx ; Order Dt/Tm: 04/03/23 14:57:29 EDT multivitamin with minerals : multivitamin with minerals ; Status: Documented ; Ordered As Mnemonic: [employer] Therapeutic Multiple Vitamins with Minerals oral tablet ; Simple Display Line: PO (by Mouth), Daily, 0 Refill(s) ; Catalog Code: multivitamin with minerals ; Order Dt/Tm: 04/03/23 15:00:40 EDT ocular lubricant : ocular lubricant ; Status: Documented ; Ordered As Mnemonic: Systane Ultra Preservative Free ophthalmic solution ; Simple Display Line: 2 Drops, Both Eyes, BID, PRN: dry eyes, 24 each, 0 Refill(s) ; Catalog Code: ocular lubricant ; Order Dt/Tm: 04/03/23 15:06:02 EDT omega-3 polyunsaturated fatty acids : omega-3 polyunsaturated fatty acids ; Status: Documented ; Ordered As Mnemonic: Fish Oil 1000 mg oral capsule ; Simple Display Line: 1 cap, PO (by Mouth), Daily, 0 Refill(s) ; Catalog Code: omega-3 polyunsaturated fatty acids ; Order Dt/Tm: 11/22/20 10:38:07 EDT tretinoin topical : tretinoin topical ; Status: Documented ; Ordered As Mnemonic: tretinoin topical 0.05% cream ; Simple Display Line: Topical, QHS, 0 Refill(s) ; Catalog Code: tretinoin topical ; Order Dt/Tm: 04/03/23 15:03:23 EDT triamcinolone topical : triamcinolone topical ; Status: Documented ; Ordered As Mnemonic: triamcinolone topical 0.5% ointment ; Simple Display Line: 0 Refill(s) ; Catalog Code: triamcinolone topical ; Order Dt/Tm: 04/13/21 10:32:38 EDT ubiquinone : ubiquinone ; Status: Documented ; Ordered As Mnemonic: Co Q-10 100 mg oral capsule ; Simple Display Line: 1 cap, PO (by Mouth), Daily, 0 Refill(s) ; Catalog Code: ubiquinone ; Order Dt/Tm: 11/21/20 10:23:29 EDT Fall Risks In the past 12 months, have you experienced 2 or more falls? : No Have you injured yourself in a fall in the past 12 months? : No In the past 12 months, have you experienced episodes of dizziness? : No In the past 12 months, have you experienced urgency or frequency with elimination? : No Have you had urinary incontinence (loss of urine) that is bothersome enough that you would like to know how it could be treated? : No Elma Montano - 04/16/24 09:09 EDT Social History Social History (As Of: 04/16/24 09:21:51 EDT) Tobacco: Never smoker (Last Updated: 04/13/21 10:37:01 EDT by Elsa Catherine LPN) Never smoker (Last Updated: 06/03/22 22:28:20 EDT by Argenis Perdomo) Never smoker (Last Updated: 04/08/22 11:10:16 EDT by Rafael CABALLERO, Ney) Never smoker (Last Updated: 02/20/23 10:57:23 EDT by Kaci CABALLERO, Adelaide Licona) Alcohol: Current, Wine, Liquor, Daily, 2 drinks/episode average. (Last Updated: 11/22/20 10:16:57 EDT by Codi Espino RN) Substance Abuse: Current, Marijuana/Synthetic Cannabinoids Comments: 11/22/20 10:18 - Codi Espino RN: has smoked in the last 2 weeks (Last Updated: 11/22/20 10:18:26 EDT by Codi Espino RN) Nutrition and Health: Low carbohydrate (Last Updated: 04/13/21 10:37:04 EDT by Elsa Catherine LPN) Exercise and Physical Activity: Exercise frequency: Daily. (Last Updated: 12/14/20 08:56:52 EDT by Sindy Hawk) Home and Environment: Feels unsafe at home: No. Lives with Alone. Concern for food availabilty No. (Last Updated: 04/13/21 10:37:08 EDT by Elsa Catherine LPN) Feels unsafe at home: No. Lives with Alone. (Last Updated: 02/20/23 10:57:40 EDT by Kaci CABALLERO, Adelaide Licona) Bryant Amato- ? ? ? AssessmentReferral Information Entered On: 04/21/20 14:28 EDT Performed On: 04/17/20 14:08 EDT by Dianne Hurtado Referral Information Referral Clinic [facility] : [facility] Radiology Referral Complete : No Dianne Hurtado - 04/21/20 14:28 EDT Problems Right lower quadrant pain Onset:16-Apr-2024 NICOLE Gonzales Peptic ulcer Onset:06-May-2023 MD Sandoval Farias Liver enzymes level above re ference range Onset:06-May-2023 MD Sandoval Fraias Diastolic heart failure Onset:02-Jul-2021 Julianne Franco Laceration of hand Onset:02-Jul-2021 Cat scratch Onset:02-Jul-2021 Coronary arteriosclerosis Onset:09-May-2021 MD Sandoval Farias Vitamin D deficiency Onset:29-Sep-2020 Resident Hudson Patino Dyspnea on exertion Onset:12-Sep-2020 Julianne Franco Supraventricular tachycardia Onset:30-Aug-2020 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 Blayne Johnsonnda Ivone Polypharmacy Onset:04-Jul-2020 MD Sandoval Farias Fibromyalgia Onset:04-Jul-2020 MD Sandoval Farias Degenerative joint disease o f hand Onset:04-Jul-2020 MD Sandoval Farias Basal cell carcinoma of skin Onset:04-Jul-2020 MD Sandoval Farias Squamous cell carcinoma of s kin Onset:04-Jul-2020 MD Sandoval Farias Urinary incontinence Onset:04-Jul-2020 MD Sandoval Farias Neuropathy Onset:04-Jul-2020 MD Sandoval Farias Hyperlipidemia Onset:04-Jul-2020 MD Sandoval Farias Insomnia Onset:04-Jul-2020 MD Sandoval Farias Essential hypertension Onset:04-Jul-2020 MD Sandoval Farias Osteoarthritis of right knee joint Onset:04-Jul-2020 MD Sandoval Farias Seasonal allergy Onset:04-Jul-2020 MD Sandoval Farias Osteoporosis Onset:04-Jul-2020 MD Sandoval Farias Gastroesophageal reflux dise ase Onset:04-Jul-2020 MD Sandoval Farias Degeneration of lumbar inter vertebral disc Onset:04-Jul-2020 MD Sandoval Farias Thallium stress test abnorma l Onset:01-May-2020 MD Mary Jane Gonzales Chest pain Onset:05-Apr-2020 MD Mary Jane Gonzales Paroxysmal supraventricular tachycardia Onset:05-Apr-2020 MD Mary Jane Gonzales Allergies and Adverse Reactions No Known Medication Allergie s(Allergy) Onset: 22-Nov-2020 NKA(Allergy) Onset: 22-Nov-2020 Medications atorvastatin;40 mg PO (by [facility]) Daily Start:16-Apr-2024 Status:Ordered Comments:Provider Administration Instructions:40 mg 1 tab, PO (by Mouth), Daily, cholesterol, 30 tab, 0, 04/16/24 9:20:00 EDT, Maintenance, Constant Indicator denosumab;Provider Administr ation Instructions:mg, SQ (Subcutaneous), 0, 07/04/20 11:22:00 EDT, Maintenance, Constant Indicator Status:Ordered Comments:Provider Administration Instructions:mg, SQ (Subcutaneous), 0, 07/04/20 11:22:00 EDT, Maintenance, Constant Indicator omega-3 polyunsaturated fatt y acids;Provider Administration Instructions:PO (by Mouth), 0, 0316/21 10:23:00 EDT, Maintenance, Constant Indicator Status:Complete Comments:Provider Administration Instructions:PO (by Mouth), 0, 11/21/20 10:23:00 EDT, Maintenance, Constant Indicator ubiquinone;100 mg PO (by Rosa th) Daily Status:Ordered Comments:Provider Administration Instructions:100 mg 1 cap, PO (by Mouth), Daily, supplement, 0, 11/21/20 10:23:00 EDT, Maintenance, Constant Indicator ascorbic acid;Provider Admin istration Instructions:Daily, 0, 11/21/20 10:23:00 EDT, Maintenance, Constant Indicator Status:Complete Comments:Provider Administration Instructions:Daily, 0, 11/21/20 10:23:00 EDT, Maintenance, Constant Indicator cobalamins;Provider Administ ration Instructions:Daily, 0, 11/21/20 10:23:00 EDT, Maintenance, Constant Indicator Status:Complete Comments:Provider Administration Instructions:Daily, 0, 11/21/20 10:23:00 EDT, Maintenance, Constant Indicator cholecalciferol;Provider Adm inistration Instructions:Daily, 0, 11/21/20 10:23:00 EDT, Maintenance, Constant Indicator Status:Complete Comments:Provider Administration Instructions:Daily, 0, 11/21/20 10:23:00 EDT, Maintenance, Constant Indicator tolterodine;4 mg PO (by Mout h) Daily Status:Ordered Comments:Provider Administration Instructions:4 mg 1 cap, PO (by Mouth), Daily, urinary problems, 30 cap, 0, 11/22/20 10:42:00 EDT, Maintenance, Constant Indicator ascorbic acid;1000 mg PO (by Mouth) Daily Status:Ordered Comments:Provider Administration Instructions:1,000 mg 1 tab, PO (by Mouth), Daily, supplement, 30 tab, 0, 11/22/20 10:38:00 EDT, Maintenance, Constant Indicator cobalamins;1000 mcg PO (by M outh) Daily Status:Ordered Comments:Provider Administration Instructions:1,000 mcg 1 tab, PO (by Mouth), Daily, supplement, 30 tab, 0, 11/22/20 10:37:00 EDT, Maintenance, Constant Indicator zolpidem;5 mg PO (by Mouth) Q Status:Ordered Comments:Provider Administration Instructions:5 mg 1 tab, PO (by Mouth), QHS, sleep, 0, 11/22/20 10:39:00 EDT, Maintenance, Constant Indicator omega-3 polyunsaturated fatt y acids;1000 mg PO (by Mouth) Daily Status:Ordered Comments:Provider Administration Instructions:1,000 mg 1 cap, PO (by Mouth), Daily, cholesterol, 0, 11/22/20 10:38:00 EDT, Maintenance, Constant Indicator tolterodine;2 mg PO (by Mout h) Daily Status:Ordered Comments:Provider Administration Instructions:2 mg 1 cap, PO (by Mouth), Daily, PRN urinary discomfort, urinary problems, 0, 11/22/20 10:42:00 EDT, Maintenance calcium carbonate;1000 mg Ch ewed Daily Status:Ordered Comments:Provider Administration Instructions:1,000 mg 1 tab, Chewed, Daily, 0, 11/22/20 10:39:00 EDT, Maintenance, Constant Indicator triamcinolone topical;Provid er Administration Instructions:0, 04/13/21 10:32:00 EDT, Soft Stop, Constant Indicator Status:Ordered Comments:Provider Administration Instructions:0, 04/13/21 10:32:00 EDT, Soft Stop, Constant Indicator cholecalciferol;25 mcg PO (b y Mouth) Daily Status:Ordered Comments:Provider Administration Instructions:25 mcg 1 tab, PO (by Mouth), Daily, 30 tab, 0, 07/02/21 15:00:00 EDT, Maintenance, Constant Indicator Procedures US Abdomen CompleteResult:FindingsCLINICAL: Abdominal or Pelvic Swelling: intermittent RLQ pain---RLQ abdominal pain R10.31US Abdomen Complete 05/03/2024 11:08 AM: TECHNIQUE: Multiple real time images were obtained.COMPARISON STUDY: CT abdomen pelvis 06/04/2022FINDINGS LIVER: Multiple cysts seen not significantly changed from the previous CT scan.GALLBLADDER: No significant abnormality. No focal tenderness.COMMON BILE DUCT: 3 mm. No significant abnormality.PANCREAS: No significant abnormality. Tail is obscured by bowel gas.AORTA: No significant abnormality.SPLEEN: No significant abnormality. 9.6 cm in length.RIGHT KIDNEY: No significant abnormality.LEFT KIDNEY: No significant abnormality. Extrarenal pelvis noted unchanged from the previous CT scan. No hydronephrosis.IVC: No significant abnormality.ASCITES: None.OTHER: No significant abnormality.IMPRESSION: No significant change from the previous CT scan. Multiple hepatic cysts again noted. Incidental note of an extrarenal pelvis in the left kidney with no evidence of hydronephrosis.TOD: 05/03/2024 12:31TOT: 05/03/2024 12:31 Assigned Physician: Rachel Peralta[S]George Read by: Rachel Peralta[S]George Electronically Signed By: Rachel Peralta[S]George Signed Date and Time: 05/03/2024 12:34FinalTechnical CommentsOrdering Provider: Kofi RIVERA[Reina]Dennys Abdomen Complete Date:03-May-2024 Vital Signs 16-Apr-2024 09:09 Body mass index (BMI) [Percentil e]29.4kg/m2 Body surface area1.57m2 Temperature Ylfwajgxlu13.8f Xcwij430{beats}/min Respiratory Rate18[min_br] BP Mbfjlxcs030iq[Hg] BP Pbnxifzwt80uj[Hg] O2 SAT93% Pain Assessment Pain Rating0 Initial Depression Screen Score0 Xzeawj57lg Eqlgnf096.8cm Sguqlb507.8lb Hhlcpv82.6kg Encounters Outpatient_Outpatient Encounter Reason:ABDOMINAL OR PELVIC SWELLING 03-May-2024 09:[id number] 23:59 [facility] Outpatient_Ambulatory Encounter Reason:EST CARE/ intermittent pinched feeling in abdomen 16-Apr-2024 09:[id number] 23:59 [facility] ? ? ? NICOLE Gonzales-16-Apr-2024 Family Practice Office NoteChief Complaint est care, c/o intermediate pinch feeling episodes in rigth side of abdomen started 3 days ago,History of Present Illness 83-year-old female presents from for an acute care visit. For the last 3 days she has had intermittent pinching in her right lower quadrant. Patient says the first time she noticed that she was weed eating but since then it is Fox several times. It comes on intermittently throughout the day several times a day. It lasts only seconds. It is as though someone pinched her skin. She has never had this before. It is not associated with nausea vomiting or diarrhea. She has noticed no blood or abnormal stools. She denies any fevers chills sweats. This patient lives here part-time but gets most of her medical care from her general practitioner in [place]. She will be returning to [place] in a couple of weeks.Review of Systems All systems reviewed and were negative except as per HPI.Physical Exam Vitals & Measurements T: 97.8 ?F (Oral) HR: 118 RR: 18 BP: 112/64 SpO2: 93% WT: 61.60 kg Body Mass Index: 29.4 kg/m2 Height - cm: 144.8 cm General: Well developed, well nourished, appears stated age. Pulm: no dyspnea, Lungs CTA, no accessory muscle use CV: RRR without murmurs, gallops or rubs Abd: soft, not distended, non-tender, normal bowel sounds throughout, no CVA tenderness Skin: no rash, no breaks, no erythema, no tenderness, no swelling Neuro: alert and oriented to person, place, time and situation Psych: normal mood, cooperative, no delusionsAssessment/Plan 1. RLQ abdominal pain There is no appreciable pain at all on deep palpation throughout her abdomen. She says she has a history of an umbilical hernia. To be safe I will order an ultrasound of her abdomen. Ordered: US Abdomen Complete, Future Order, Routine, 04/16/24, Ambulatory, Abdominal or Pelvic Swelling, intermittent RLQ pain, RLQ abdominal pain, Per Imaging Protocol, Rad Type, 1 Chronic Disease Management Pain Assessment Pain Ratin Professional Services (Time of Visit Documentation) __ minutes were spent in face to face counseling with the patient regarding the following conditions:Problem List/Past Medical History Ongoing BCC (basal cell carcinoma) CAD (coronary artery disease) Chronic GERD DDD (degenerative disc disease), lumbar Diastolic CHF Fibromyalgia HLD (hyperlipidemia) Insomnia Liver enzyme elevation Neuropathy Osteoarthritis of right knee Osteoarthritis, hand Osteoporosis Polypharmacy PSVT (paroxysmal supraventricular tachycardia) PUD (peptic ulcer disease) RLQ abdominal pain SCC (squamous cell carcinoma) Seasonal allergies Urinary incontinence Vitamin D deficiencyProcedure/Surgical History Upper GI (gastrointestinal) endoscopy: 05/01/23 CAT scan: 04/28/23 Cardiac catheterization: 06/13/20 Myocardial perfusion scan: 04/28/20 Transthoracic echocardiography: 10/16/[address]: 10/15/19 Bone density scan: 07/04/19 Mammogram: 07/04/19 Colonoscopy: 07/04/16 Thoracic Left knee Right kneeMedications ammonium lactate topical(ammonium lactate topical 12% cream), 1 appltn, Topical, BID ascorbic acid(Vitamin C 1000 mg oral tablet), 1000 mg= 1 tab, PO (by Mouth), Daily atorvastatin(atorvastatin 40 mg oral tablet), 40 mg= 1 tab, PO (by Mouth), Daily azelastine nasal(azelastine nasal 0.15% spray), 1 spray, Nasal, BID, 1 refills calcium carbonate(calcium carbonate 1000 mg oral tablet, chewable), 1000 mg= 1 tab, Chewed, Daily cholecalciferol(Vitamin D3 1000 intl units oral tablet), 25 mcg= 1 tab, PO (by Mouth), Daily cimetidine(Tagamet 200 mg oral tablet), 400 mg= 2 tab, PO (by Mouth), BID cyanocobalamin(Vitamin B12 1000 mcg oral tablet), 1000 mcg= 1 tab, PO (by Mouth), Daily denosumab(Prolia 60 mg/mL subcutaneous solution), 60 mg, SQ (Subcutaneous), Q6MIN denosumab(Prolia), 60 mg, SQ (Subcutaneous), ONCE diclofenac topical(diclofenac topical 3% topical gel), 0.5 g, Topical, BID furosemide(furosemide 40 mg oral tablet), 40 mg= 1 tab, PO (by Mouth), Daily, PRN, 2 refills hydrocortisone topical(hydrocortisone topical 2.5% lotion), Topical, Daily, PRN Misc Rx(Voltaren 2.5%) multivitamin with minerals(Alive [employer] Therapeutic Multiple Vitamins with Minerals oral tablet), PO (by Mouth), Daily ocular lubricant(Systane Ultra Preservative Free ophthalmic solution), 2 Drops, Both Eyes, BID, PRN omega-3 polyunsaturated fatty acids(Fish Oil 1000 mg oral capsule), 1000 mg= 1 cap, PO (by Mouth), Daily oxybutynin(oxybutynin 5 mg oral tablet), 5 mg= 1 tab, PO (by Mouth), Daily, PRN, 3 refills potassium chloride(Potassium Chloride (Eqv-K-Tab) 20 mEq oral tablet, extended release), See Instructions, 5 refills pregabalin(pregabalin 200 mg oral capsule), 200 mg= 1 cap, PO (by Mouth), BID, 3 refills sertraline(sertraline 100 mg oral tablet), 100 mg= 1 tab, PO (by Mouth), Daily, 3 refills tretinoin topical(tretinoin topical 0.05% cream), Topical, QHS triamcinolone topical(triamcinolone topical 0.5% ointment) ubiquinone(Co Q-10 100 mg oral capsule), 100 mg= 1 cap, PO (by Mouth), DailyAllergies NKA No Known Medication AllergiesSocial History Alcohol Use:Current Type (per serving):Wine, Liquor Frequency:Daily Average drinks per episode in last year:2 Exercise and Physical Activity Times per week:Daily Home and Environment *Feels unsafe at home:No Lives with:Alone Nutrition and Health DietLow carbohydrate Substance Abuse Use:Current Type:Marijuana/Synthetic Cannabinoids Tobacco Use:Never smokerFamily History CAD - Coronary artery disease: Negative: Father, Sister, Brother, Daughter, Son, Grandfather (M), Grandfather (P), Grandmother (M), Grandmother (P) and Identical Twin. Cardiomyopathy: Negative: Father, Sister, Brother, Daughter, Son, Grandfather (M), Grandfather (P), Grandmother (M), Grandmother (P) and Identical Twin. Congenital heart disease: Negative: Father, Sister, Brother, Daughter, Son, Grandfather (M), Grandfather (P), Grandmother (M), Grandmother (P) and Identical Twin. Stroke: Negative: Father, Sister, Brother, Daughter, Son, Grandfather (M), Grandfather (P), Grandmother (M), Grandmother (P) and Identical Twin. Sudden cardiac : Negative: Father, Sister, Brother, Daughter, Son, Grandfather (M), Grandfather (P), Grandmother (M), Grandmother (P) and Identical Twin. Health Status Family Member(s)Diagnostic Results COMPLETED RADIOLOGY IMAGING STUDIES: No Imaging Results for encounter Signed on 04/16/2024 09:48 by Kofi RIVERA[S], NICOLE Boudreaux Outpatient_Ambulatory [place] led Encounter Reason:intermittent pinched feeling to R upper abdomen since yesterday 16-Apr-2024 07:40 [facility] Outpatient_Ambulatory Recurr ing [id number] 23:59 Julianne Franco (Attending) [facility] Outpatient_Ambulatory [place] [facility] 03-Apr-2023 14:40 MD Sandoval Farias (Attending) [facility] Outpatient_Ambulatory [place] [facility] 20-Feb-2023 10:20 VILLA Garcia (Attending) [facility] Outpatient_Ambulatory [place] [facility] 10-Jul-2022 10:40 MD Sandoval Farias (Attending) [facility] Outpatient_Ambulatory [place] [facility] 03-Apr-2021 13:40 MD Sandoval Farias (Attending) [facility] Message 24-Jul-2020 12[facility] M[facility]Phone Message 30-Mar-2020 11:11 [facility] Outpatient_Ambulatory Encounter Reason:PT REQUEST EARLIER APPT TO DISCUSS POSSIBLE ABLATION FORMER [facility] PT [facility] Outpatient_Outpatient Encounter Reason:SUPRAVENTRICULAR TACHYCARDIA PER [id number] MRM ORDER CRMISH Outpatient_Outpatient Encounter Reason:PROLIA MD Sandoval Farias (Attending) [facility] Outpatient_Outpatient Encounter Reason:OSTEOPOROSIS MD Sandoval Farias (Attending) [facility]_Rec[facility]ring Encounter Reason:OSTEOPOROSIS [id number] 11:40 MD Sandoval Farias (Attending) [facility]
== END 2024-12-14 09:56 | disposition home or self-care (01) ==
LOC: HO.MAMMO 09:55
PROVIDERS: PCP Family Medicine; Visit Provider Family Medicine
DX: Z12.31 Encounter for screening mammogram for malignant neoplasm of breast (principal); Z13.820 Encounter for screening for osteoporosis; Z78.0 Asymptomatic menopausal state
CPT/HCPCS: 77063; 77067; 77080

== ENCOUNTER → 2024-12-14 10:30 | Outpatient (BNV) | payer MEDICARE, SELFPAY | PROVIDERS: PCP Family Medicine; Visit Provider Radiology Diagnostic Radiology | DX: E28.39 Other primary ovarian failure (principal) | CPT/HCPCS: 77080 ==